=== PATIENT | female | born 1980 | race Caucasian/White ===

== ENCOUNTER → 2017-12-16 09:00 | Outpatient (CLI) | payer MEDICAID, SELFPAY ==
[2017-12-16 10:37] LABS: Absolute Lymphocyte Count 3.51 X10^3/ul (0.83-4.51); Absolute Neutrophil Count 4.1 X10^3/uL (2.0-7.7); Basophil# 0.05 X10^3/uL; Basophil% 0.6 % (0-1); Eosinophil# 0.38 X10^3/uL; Eosinophils% 4.4 % (0-5); Hematocrit 38.7 % (37-47); Hemoglobin 12.1 g/dl (12.0-15.0); Lymphocyte # 3.51 X10^3/ul (4.0); Lymphocyte % 40.8 % (19-41); Mean Corp Hgb Conc 31.3 g/gl (32-36); Mean Corpuscular Hgb 27.3 pg (27.0-32.0); Mean Corpuscular Volume 87.2 fL (81-99); Mean Platelet Vol. 10.3 fl (6.2-12.0); Monocyte# 0.54 X10^3/uL; Monocyte% 6.3 % (0-10); Neutrophil % 47.7 % (47-70); Platelet Count 295 K/mm3 (150-450); RBC Distribution Width CV 15.4 % (11.6-14.6); RBC Distribution Width SD 49.6 fl (35.1-43.9); Red Blood Count 4.44 M/mm3 (4.2-5.4); White Blood Count 8.6 K/mm3 (4.4-11.0)
[2017-12-16 10:38] LABS: POSITIVE COUNT NO; POSITIVE DIFFERENTIAL NO; POSITIVE MORPHOLOGY NO
[2017-12-16 11:02] LABS: ALB/GLOB Ratio 0.8 RATIO (0.9-2.4); AST(SGOT) 15 U/L (15-37); Alanine Aminotransfer ALT/SGPT 23 U/L (13-56); Albumin, Serum 3.1 g/dL (3.2-5.0); Alkaline Phosphatase 57 U/L (45-117); Anion Gap 7 (5-15); BUN 9 mg/dL (7-18); BUN/Creat Ratio 11.4 RATIO (10-20); Calcium,Total 8.5 mg/dL (8.5-10.1); Chloride 110 mmol/L (98-107); Creatinine, Serum 0.79 mg/dL (0.55-1.02); EST Glomerular Filtration Rate 86 mL/min (>60); Est Glom Filt Rate - Afr Amer 105 mL/min (>60); Glucose 105 mg/dL (74-106); Potassium 3.4 mmol/L (3.5-5.1); Protein, Total 7.1 g/dL (6.4-8.2); Sodium Level 141 mmol/L (136-145); Thyroid Stim Hormone (TSH) 0.94 uIU/mL (0.358-3.74)
[2017-12-16 11:43] LABS: Vitamin B12 330 pg/mL (211-911); Vitamin D,25 Hydroxy 11.6 ng/mL (29.95-100.01)
== END ==
PROVIDERS: Family Provider Family Medicine; PCP Family Medicine; Visit Provider Family Medicine
DX: I10 Essential (primary) hypertension (principal); R53.83 Other fatigue; Z72.0 Tobacco use
CPT/HCPCS: 36415; 80053; 82306; 82607; 84443; 85025

== ENCOUNTER 2018-06-22 14:33 | Emergency (ER) | payer SELFPAY ==
[2018-06-22 14:33] VITALS: BP 176/112; PULSE 83; RESP 20; TEMP 36.9; O2SAT 97; BMI 44.3
--- NOTE | 2018-06-22 15:32 | RAD_ITS ---
STUDY: X-RAY CHEST REASON FOR EXAM: Female, 37 years old. One-week history of cough. TECHNIQUE: PA and lateral views of the chest. COMPARISON: Comparison is made with prior study dated August 31, 2017. FINDINGS: The lungs are clear and expanded. There is no demonstrated pleural abnormality. Normal size heart. Normal mediastinum and kaleb. Normal visualized pulmonary arteries. Normal visualized aortic arch and descending thoracic aorta. Normal visualized thoracic spine. Normal visualized ribs, clavicles, and shoulders. There is no demonstrated abnormality of the visualized soft tissue structures of the upper abdomen. RAD/Chest PA and Lateral IMPRESSION: Normal x-ray examination of the chest. Electronically Signed: Horace Delgado MD at 15:46 EDT Tel [phone], Service support ,
[2018-06-22] MEDS: Albuterol 2.5 MG/3 ML VIAL.NEB. INHALATION (15:43)
[2018-06-22 15:44] VITALS: PULSE 66; RESP 20
--- NOTE | 2018-06-22 15:51 | ED.VISSUMM ---
- ER Visit Summary Date of Service: 06/22/18 Chief Complaint: Cough History of Present Illness: The patient is a 37 F presenting for evaluation secondary to cough. Patient reports over the course of the last week she has been dealing with an upper respiratory infection. Patient states that it is is been associated with a dry cough, but recently has become a wet cough. She reports that she has had subjective fevers rhinorrhea and some nausea with no vomiting associated with this. Patient is concerned because she has been coughing so much now that her ribs are hurting. She is a smoker, has not been able to smoke for the last 10 days secondary to this illness. Review of systems otherwise negative. Physical Examination: Vital signs are within normal limits, patient is afebrile. General: Patient is well-nourished well-developed and in no acute distress. Head: Normocephalic, atraumatic Eyes: Pupils equal round and reactive bilaterally, extra occular motion intact bialterally ENT: Moist mucous membranes Neck: Supple, no lymphadenopathy, no JVD, no meningismus CVS: Heart regular rate and rhythm, no murmurs, rubs or gallops, radial pulses 2+ bilaterally Resp: Respirations nondistressed, lung sounds show mild wheezes Abdomen: Soft, nontender, nondistended, no palpable masses, normal bowel sounds Back: Nontender Extremities: Nontender, atraumatic, active full range of motion, no peripheral edema Skin: warm, no rashes, no petechia Neuro: Alert and oriented x 4, CN 2-12 intact, no lateralizing neurological defecits Psyc: Normal affect Test Results: PA and lateral chest x-ray by my personal and radiology review is negative for cardia pulmonary process Emergency Department Course and Treatment: Patient presented for evaluation secondary to a respiratory illness. She was given a breathing treatment. X-ray shows no pneumonia. Patient will be treated for bronchitis with an inhaler and a short burst of steroids. She will follow-up with primary care as needed. Disposition: Discharge Impression: 1. Bronchitis This note was generated with [employer] dictation software. It may contain incorrect words, spelling, and punctuation that were not noted in review of the chart prior to signing ED Disposition - Plan for ED Patient: Disposition: Home or Assisted Living Chief Complaint: Cough Diagnosis: Bronchitis Instructions: ED Bronchitis Asthmatic Prescriptions: Prednisone [Deltasone] 40 mg PO DAILY #10 tab Referrals: Rigo Coats MD [Primary Care Provider] - 3-5 Days if not improving
--- NOTE | 2018-06-22 15:55 | ED.DCSUM_ITS ---
- ER Visit Summary Date of Service: 06/22/18 Chief Complaint: Cough History of Present Illness: The patient is a 37 F presenting for evaluation secondary to cough. Patient reports over the course of the last week she has been dealing with an upper respiratory infection. Patient states that it is is been associated with a dry cough, but recently has become a wet cough. She reports that she has had subjective fevers rhinorrhea and some nausea with no vomiting associated with this. Patient is concerned because she has been coughing so much now that her ribs are hurting. She is a smoker, has not been able to smoke for the last 10 days secondary to this illness. Review of systems otherwise negative. Physical Examination: Vital signs are within normal limits, patient is afebrile. General: Patient is well-nourished well-developed and in no acute distress. Head: Normocephalic, atraumatic Eyes: Pupils equal round and reactive bilaterally, extra occular motion intact bialterally ENT: Moist mucous membranes Neck: Supple, no lymphadenopathy, no JVD, no meningismus CVS: Heart regular rate and rhythm, no murmurs, rubs or gallops, radial pulses 2 + bilaterally Resp: Respirations nondistressed, lung sounds show mild wheezes Abdomen: Soft, nontender, nondistended, no palpable masses, normal bowel sounds Back: Nontender Extremities: Nontender, atraumatic, active full range of motion, no peripheral edema Skin: warm, no rashes, no petechia Neuro: Alert and oriented x 4, CN 2-12 intact, no lateralizing neurological defecits Psyc: Normal affect Test Results: PA and lateral chest x-ray by my personal and radiology review is negative for cardia pulmonary process Emergency Department Course and Treatment: Patient presented for evaluation secondary to a respiratory illness. She was given a breathing treatment. X- ray shows no pneumonia. Patient will be treated for bronchitis with an inhaler and a short burst of steroids. She will follow-up with primary care as needed. Disposition: Discharge Impression: 1. Bronchitis This note was generated with [employer] dictation software. It may contain incorrect words, spelling, and punctuation that were not noted in review of the chart prior to signing ED Disposition - Plan for ED Patient: Disposition: Home or Assisted Living Chief Complaint: Cough Diagnosis: Bronchitis Instructions: ED Bronchitis Asthmatic Prescriptions: Prednisone [Deltasone] 40 mg PO DAILY #10 tab Referrals: Rigo Coats MD [Primary Care Provider] - 3-5 Days if not improving
[2018-06-22] MEDS: predniSONE 20 MG Tablet 60 MG PO (16:05)
[2018-06-22 16:07] VITALS: BP 175/101; PULSE 73; RESP 18; O2SAT 94
== END 2018-06-22 16:08 | disposition home or self-care (01) ==
LOC: ED 16:05
PROVIDERS: Emergency Provider Emergency Medicine; Family Provider Family Medicine; PCP Family Medicine
DX: J40 Bronchitis, not specified as acute or chronic (principal); E66.9 Obesity, unspecified; Z68.41 Body mass index [BMI] 40.0-44.9, adult; Z72.0 Tobacco use
CPT/HCPCS: 71046; 94640; 99283

== ENCOUNTER 2018-10-31 14:45 | Emergency (ER) | payer BC, SELFPAY ==
[2018-10-31 14:46] VITALS: BP 181/100; PULSE 103; RESP 16; TEMP 36.5; O2SAT 100; BMI 47.2
--- NOTE | 2018-10-31 15:18 | EKG12_ITS ---
Test Reason : PALPS Blood Pressure : / mmHG Vent. Rate : 083 BPM Atrial Rate : 083 BPM P-R Int : 130 ms QRS Dur : 090 ms QT Int : 374 ms P-R-T Axes : 044 024 038 degrees QTc Int : 439 ms Normal sinus rhythm Normal ECG Confirmed by VIV ARREDONDO, LITA ([id number]), editorial writer MARLENY VEGA ([id number]) on 11/03/2018 3:25:20 PM Referred By: STACI Confirmed By:LITA NAM MD
--- NOTE | 2018-10-31 15:30 | RAD_ITS ---
STUDY: X-RAY CHEST REASON FOR EXAM: Female, 38 years old. Palpitations. TECHNIQUE: PA and lateral views of the chest. COMPARISON: Comparison is made with prior study June 22, 2018. FINDINGS: The lungs are clear and expanded. There is no demonstrated pleural abnormality. Normal size heart. Normal mediastinum and kaleb. Normal visualized pulmonary arteries. Normal visualized aortic arch and descending thoracic aorta. Normal visualized thoracic spine. Normal visualized ribs, clavicles, and shoulders. There is no demonstrated abnormality of the visualized soft tissue structures of the upper abdomen. RAD/Chest PA and Lateral IMPRESSION: Normal x-ray examination of the chest. Electronically Signed: Horace Delgado MD at 15:44 EST , Service support ,
[2018-10-31 15:44] LABS: Absolute Lymphocyte Count 2.37 X10^3/ul (0.83-4.51); Absolute Neutrophil Count 6.5 X10^3/uL (2.0-7.7); Basophil# 0.06 X10^3/uL; Basophil% 0.6 % (0-1); Eosinophil# 0.48 X10^3/uL; Eosinophils% 4.7 % (0-5); Hematocrit 42.3 % (37-47); Hemoglobin 13.8 g/dl (12.0-15.0); Lymphocyte # 2.37 X10^3/ul (4.0); Lymphocyte % 23.2 % (19-41); Mean Corp Hgb Conc 32.6 g/gl (32-36); Mean Corpuscular Hgb 27.9 pg (27.0-32.0); Mean Corpuscular Volume 85.5 fL (81-99); Mean Platelet Vol. 10.2 fl (6.2-12.0); Monocyte# 0.79 X10^3/uL; Monocyte% 7.7 % (0-10); Neutrophil # 6.46 X10^3/uL (2.7-7.7); Neutrophil % 63.4 % (47-70); Platelet Count 274 K/mm3 (150-450); RBC Distribution Width CV 15.3 % (11.6-14.6); RBC Distribution Width SD 47.6 fl (35.1-43.9); Red Blood Count 4.95 M/mm3 (4.2-5.4); White Blood Count 10.2 K/mm3 (4.4-11.0)
[2018-10-31 15:45] LABS: POSITIVE COUNT NO; POSITIVE DIFFERENTIAL NO; POSITIVE MORPHOLOGY NO
[2018-10-31 16:06] LABS: Anion Gap 6 (5-15); BUN 9 mg/dL (7-18); BUN/Creat Ratio 11.5 RATIO (10-20); Calcium,Total 8.6 mg/dL (8.5-10.1); Chloride 107 mmol/L (98-107); Creatinine, Serum 0.78 mg/dL (0.55-1.02); EST Glomerular Filtration Rate 87 mL/min (>60); Est Glom Filt Rate - Afr Amer 105 mL/min (>60); Glucose 135 mg/dL (74-106); Potassium 3.3 mmol/L (3.5-5.1); Sodium Level 139 mmol/L (136-145)
--- NOTE | 2018-10-31 16:41 | ED.DCSUM_ITS ---
- ER Visit Summary Date of Service: 10/31/18 Chief Complaint: Palpitations History of Present Illness: The patient is a 38 F who presents to the emergency department palpitations. Patient states that around the time that she gets her period, she will have intermittent heart racing. She states that she woke from sleep today. She states she felt like it was racing. She did take her pulse and was only in the 90s. She has had this before. She states that during her , she did have symptomatic tachycardia. She was on Lopressor but when she delivered, the symptoms resolved. She does state that she is very sensitive to hormonal imbalance. She is been following with her [employer] because she does have a history of PCO S. She was just started on new medications Metformin, spironolactone, and Imitrex but has not had the prescriptions filled. She denies any chest pain. She denies any dyspnea. She has no history of pulmonary embolus. She is no history of CHF. Physical Examination: Vital signs reviewed General: Well-nourished, well-developed Head: Normocephalic, atraumatic Eyes: Pupils equal and reactive, extraocular muscles intact Neck, supple, no lymphadenopathy Heart: Regular rate and rhythm Respiratory: No distress, clear bilaterally Right breast: Patient has a small spontaneously draining abscess with minimal surrounding cellulitis Abdomen: Soft, nontender, nondistended, no peritoneal signs Back: Nontender Extremities: Nontender, no edema, no cords Skin: Normal color no rash Neuro: Alert and oriented, no focal or lateralizing deficits Test Results: [] Emergency Department Course and Treatment: EKG was obtained in triage. It shows sinus rhythm without acute ischemic change. She was kept on a monitor to had no dysrhythmia. Her labs are unremarkable. Her chest x-ray shows no evidence of volume overload. I do not feel this patient has a pulmonary embolus. She has had no shortness of breath. She has no hypoxia. She does have a small spontaneously draining abscess. She is also mildly hypokalemic. I do feel that this is symptomatic palpitations likely secondary to her PCO S. I do not see a clear indication for hospitalization or medical treatment. The patient will be started on doxycycline for her draining abscess. She will have her potassium replaced. I do feel that she is safe for outpatient therapy. Treatment Plan: [] Disposition: Discharge Impression: 1. Symptomatic palpitations 2. Right breast abscess This note was generated with [employer] dictation software. It may contain incorrect words, spelling, and punctuation that were not noted in review of the chart prior to signing ED Disposition - Plan for ED Patient: Chief Complaint: Palpitations Instructions: ED Palpitations Prescriptions: Potassium Chloride [K-Dur] 20 meq PO DAILY #10 tab Doxycycline 100 mg PO BID #20 cap Referrals: Rigo Coats MD [Primary Care Provider] -
[2018-10-31 16:42] VITALS: O2SAT 99
[2018-10-31 16:44] VITALS: BP 148/95; PULSE 74; RESP 17; O2SAT 99
[2018-10-31 16:46] VITALS: BP 138/96; PULSE 72; RESP 21; O2SAT 99
[2018-10-31] MEDS: Doxycycline 100 MG CAPSULE PO (16:50)
== END 2018-10-31 17:01 | disposition home or self-care (01) ==
LOC: ED 16:42
PROVIDERS: Emergency Provider Emergency Medicine; Family Provider Family Medicine; PCP Family Medicine
DX: R00.2 Palpitations (principal); N61.1 Abscess of the breast and nipple; E28.2 Polycystic ovarian syndrome
CPT/HCPCS: 71046; 80048; 84484; 85025; 93005; 99285

== ENCOUNTER 2018-11-02 05:54 | Emergency (ER) | payer BC, SELFPAY ==
[2018-11-02 05:55] VITALS: BP 177/105; PULSE 75; RESP 16; TEMP 37.1; O2SAT 98; BMI 48.6
--- NOTE | 2018-11-02 06:59 | EKG12_ITS ---
Test Reason : ABNL PAIN Blood Pressure : / mmHG Vent. Rate : 060 BPM Atrial Rate : 060 BPM P-R Int : 134 ms QRS Dur : 086 ms QT Int : 394 ms P-R-T Axes : 024 004 017 degrees QTc Int : 394 ms Normal sinus rhythm Normal ECG Confirmed by VIV ARREDONDO, LITA ([id number]), editor managing newspaper MARLENY VEGA ([id number]) on 11/03/2018 3:15:17 PM Referred By: JORI Confirmed By:LITA NAM MD
[2018-11-02 07:09] LABS: Absolute Lymphocyte Count 3.22 X10^3/ul (0.83-4.51); Absolute Neutrophil Count 5.5 X10^3/uL (2.0-7.7); Basophil# 0.05 X10^3/uL; Basophil% 0.5 % (0-1); Eosinophil# 0.49 X10^3/uL; Eosinophils% 4.9 % (0-5); Hematocrit 40.8 % (37-47); Hemoglobin 13.2 g/dl (12.0-15.0); Lymphocyte # 3.22 X10^3/ul (4.0); Lymphocyte % 32.3 % (19-41); Mean Corp Hgb Conc 32.4 g/gl (32-36); Mean Corpuscular Hgb 27.7 pg (27.0-32.0); Mean Corpuscular Volume 85.5 fL (81-99); Mean Platelet Vol. 10.6 fl (6.2-12.0); Monocyte# 0.74 X10^3/uL; Monocyte% 7.4 % (0-10); Neutrophil # 5.47 X10^3/uL (2.7-7.7); Neutrophil % 54.8 % (47-70); Platelet Count 268 K/mm3 (150-450); RBC Distribution Width CV 15.1 % (11.6-14.6); Red Blood Count 4.77 M/mm3 (4.2-5.4)
[2018-11-02 07:16] LABS: POSITIVE COUNT NO; POSITIVE DIFFERENTIAL NO; POSITIVE MORPHOLOGY NO
[2018-11-02] MEDS: Ondansetron 4 MG/2 ML Vial IV (07:23)
[2018-11-02] MEDS: Famotidine 20mg IV Push Syringe Q12 300 MG IV (07:23)
[2018-11-02] MEDS: 0.9% Normal Saline 1,000 ML 1000 ML IV (07:23)
[2018-11-02 07:25] LABS: Mucous, Urine 0 SEEN /hpf (<or=2+); White Blood Cells 0 SEEN /hpf (0-5)
[2018-11-02 07:25] LABS: ALB/GLOB Ratio 0.7 RATIO (0.9-2.4); AST(SGOT) 12 U/L (15-37); Alanine Aminotransfer ALT/SGPT 19 U/L (13-56); Albumin, Serum 3.2 g/dL (3.2-5.0); Alkaline Phosphatase 64 U/L (45-117); Anion Gap 5 (5-15); BUN 11 mg/dL (7-18); BUN/Creat Ratio 15.2 RATIO (10-20); Calcium,Total 8.8 mg/dL (8.5-10.1); Chloride 110 mmol/L (98-107); Creatinine, Serum 0.72 mg/dL (0.55-1.02); EST Glomerular Filtration Rate 95 mL/min (>60); Est Glom Filt Rate - Afr Amer 115 mL/min (>60); Estimated Creatinine Clearance 105.82 ml/min; Globulin 4.4 g/dL (2.2-4.2); Glucose 99 mg/dL (74-106); Lipase 103 U/L (73-393); Protein, Total 7.6 g/dL (6.4-8.2); Sodium Level 138 mmol/L (136-145)
[2018-11-02 07:27] LABS: Pregnancy, Serum, hCG Quali. NEGATIVE Negative (0-9 Nonpreg)
[2018-11-02 07:31] LABS: Color, Urine Yellow (Yellow); Glucose, Dipstick Normal (Normal); Ketone-Dipstick Negative (Negative); Leukocyte Esterase-Dipstick Negative /ul (Negative); Nitrite-Dipstick Negative (Negative); Occult Blood-Urine 50 /ul (Negative); Protein-Dipstick Negative (Negative); Urine Bilirubin Dipstick Negative (Negative); Urine Clarity Sl. Cloudy (Clear); Urine Urobilinogen Normal (Normal)
[2018-11-02 07:38] LABS: Bacteria 1+ /hpf (None Seen); Red Blood Cells-Urine 0-5 SEEN /hpf (0-5); Squamous Epithelial Cells - UA 0-5 SEEN /hpf (5-10)
--- NOTE | 2018-11-02 08:29 | ED.VISSUMM ---
- ER Visit Summary Date of Service: 11/02/18 Chief Complaint: Abdominal pain History of Present Illness: The patient is a 38 F with epigastric abdominal pain that started yesterday evening at 10 PM. It started when the patient went to bed. She has pain that she describes as a burning. It does not radiate. She tried taking Dang-[place] but it did not help. She has nausea but no other associated symptoms. She had similar symptoms in the past with acid reflux, but never this severe. She has a history of appendectomy and PCOS. Physical Examination: Afebrile and vital signs unremarkable except for a blood pressure of 177/105. Patient appears uncomfortable but is not toxic or in distress. Skin is normal in color without pallor, jaundice, or diaphoresis. Heart regular rate and rhythm. Lungs clear. Abdomen soft but tender in the epigastric region. No guarding or rebound. No pain over the right or left upper quadrant. No CVA tenderness. Test Results: EKG showed sinus rhythm at a rate of 60. No sign of acute ischemia or infarction pattern. CBC normal. CMP unremarkable. Lipase normal. Urinalysis normal. Troponin normal. HCG negative. Emergency Department Course and Treatment: Patient received fluids, morphine, Zofran, and Pepcid. On reevaluation, the nausea has improved but she has continued pain. Based on her exam findings and labs, I do not believe she has cholecystitis, pancreatitis, hepatitis. Nothing to suggest bowel obstruction, colitis, diverticulitis. I suspect she has gastritis or acid reflux. Patient will be treated with a course of Pepcid, Zofran, and MiraLAX. She will follow-up with her primary care doctor for recheck. Return right away for any new or worsening issues. Treatment Plan: As above Disposition: Discharge Impression: 1. Epigastric abdominal pain This note was generated with [employer] dictation software. It may contain incorrect words, spelling, and punctuation that were not noted in review of the chart prior to signing ED Disposition - Plan for ED Patient: Referrals: Rigo Coats MD [Primary Care Provider] -
--- NOTE | 2018-11-02 08:32 | ED.DCSUM_ITS ---
- ER Visit Summary Date of Service: 11/02/18 Chief Complaint: Abdominal pain History of Present Illness: The patient is a 38 F with epigastric abdominal pain that started yesterday evening at 10 PM. It started when the patient went to bed. She has pain that she describes as a burning. It does not radiate. She tried taking Dang-[place] but it did not help. She has nausea but no other associated symptoms. She had similar symptoms in the past with acid reflux, but never this severe. She has a history of appendectomy and PCOS. Physical Examination: Afebrile and vital signs unremarkable except for a blood pressure of 177/105. Patient appears uncomfortable but is not toxic or in distress. Skin is normal in color without pallor, jaundice, or diaphoresis. Heart regular rate and rhythm. Lungs clear. Abdomen soft but tender in the epigastric region. No guarding or rebound. No pain over the right or left upper quadrant. No CVA tenderness. Test Results: EKG showed sinus rhythm at a rate of 60. No sign of acute ischemia or infarction pattern. CBC normal. CMP unremarkable. Lipase normal. Urinalysis normal. Troponin normal. HCG negative. Emergency Department Course and Treatment: Patient received fluids, morphine, Zofran, and Pepcid. On reevaluation, the nausea has improved but she has continued pain. Based on her exam findings and labs, I do not believe she has cholecystitis, pancreatitis , hepatitis. Nothing to suggest bowel obstruction, colitis, diverticulitis. I suspect she has gastritis or acid reflux. Patient will be treated with a course of Pepcid, Zofran, and MiraLAX. She will follow-up with her primary care doctor for recheck. Return right away for any new or worsening issues. Treatment Plan: As above Disposition: Discharge Impression: 1. Epigastric abdominal pain This note was generated with [employer] dictation software. It may contain incorrect words, spelling, and punctuation that were not noted in review of the chart prior to signing ED Disposition - Plan for ED Patient: Referrals: Rigo Coats MD [Primary Care Provider] -
--- NOTE | 2018-11-02 08:32 | ED.DEP ---
ED Disposition - Plan for ED Patient: Instructions: ED Abdominal Pain Unkn Cause Prescriptions: Ondansetron [Zofran Odt] 4 mg PO Q8H PRN PRN #10 tab PRN Reason: Nausea Polyethylene Glycol 3350 [Miralax] 17 gm PO DAILY #30 packet Famotidine [Pepcid] 20 mg PO BID #28 tab Referrals: Rigo Coats MD [Primary Care Provider] -
[2018-11-02 08:50] VITALS: BP 151/84; PULSE 16; PULSE 58; RESP 16; O2SAT 99
== END 2018-11-02 08:51 | disposition home or self-care (01) ==
LOC: ED 07:01
PROVIDERS: Emergency Provider Emergency Medicine; Family Provider Family Medicine; PCP Family Medicine
DX: R10.13 Epigastric pain (principal); R11.0 Nausea; I10 Essential (primary) hypertension; Z72.0 Tobacco use
CPT/HCPCS: 80053; 81001; 83690; 84484; 84703; 85025; 93005; 96361; 96374; 96375; 99284; J7030; A4216; J2405; J3490

== ENCOUNTER → 2018-11-03 09:46 | Outpatient (CLI) | payer BC, SELFPAY ==
[2018-11-02 05:55] VITALS: BMI 48.6
[2018-11-03 11:58] LABS: Absolute Lymphocyte Count 2.85 X10^3/ul (0.83-4.51); Absolute Neutrophil Count 4.9 X10^3/uL (2.0-7.7); Basophil# 0.06 X10^3/uL; Basophil% 0.7 % (0-1); Eosinophil# 0.42 X10^3/uL; Eosinophils% 4.8 % (0-5); Hematocrit 39.8 % (37-47); Hemoglobin 12.5 g/dl (12.0-15.0); Lymphocyte # 2.85 X10^3/ul (4.0); Lymphocyte % 32.2 % (19-41); Mean Corp Hgb Conc 31.4 g/gl (32-36); Mean Corpuscular Hgb 27.2 pg (27.0-32.0); Mean Corpuscular Volume 86.5 fL (81-99); Mean Platelet Vol. 10.3 fl (6.2-12.0); Monocyte# 0.56 X10^3/uL; Monocyte% 6.3 % (0-10); Neutrophil # 4.94 X10^3/uL (2.7-7.7); Neutrophil % 55.9 % (47-70); Platelet Count 258 K/mm3 (150-450); RBC Distribution Width CV 15.1 % (11.6-14.6); RBC Distribution Width SD 47.9 fl (35.1-43.9); White Blood Count 8.8 K/mm3 (4.4-11.0)
[2018-11-03 12:01] LABS: POSITIVE COUNT NO; POSITIVE DIFFERENTIAL NO; POSITIVE MORPHOLOGY NO
[2018-11-03 12:43] LABS: Vitamin B12 582 pg/mL (211-911); Vitamin D,25 Hydroxy 13.9 ng/mL (29.95-100.01)
[2018-11-03 12:47] LABS: ALB/GLOB Ratio 0.8 RATIO (0.9-2.4); AST(SGOT) 15 U/L (15-37); Alanine Aminotransfer ALT/SGPT 20 U/L (13-56); Albumin, Serum 3.3 g/dL (3.2-5.0); Alkaline Phosphatase 60 U/L (45-117); Anion Gap 9 (5-15); BUN 8 mg/dL (7-18); BUN/Creat Ratio 12.1 RATIO (10-20); Calcium,Total 8.4 mg/dL (8.5-10.1); Chloride 110 mmol/L (98-107); Creatinine, Serum 0.66 mg/dL (0.55-1.02); EST Glomerular Filtration Rate 105 mL/min (>60); Est Glom Filt Rate - Afr Amer 128 mL/min (>60); Globulin 4.2 g/dL (2.2-4.2); Glucose 91 mg/dL (74-106); Potassium 3.7 mmol/L (3.5-5.1); Protein, Total 7.5 g/dL (6.4-8.2); Sodium Level 140 mmol/L (136-145); Thyroid Stim Hormone (TSH) 1.31 uIU/mL (0.358-3.74)
== END ==
PROVIDERS: Family Provider Family Medicine; PCP Family Medicine; Visit Provider Family Medicine
DX: R53.83 Other fatigue (principal); I10 Essential (primary) hypertension; Z72.0 Tobacco use
CPT/HCPCS: 36415; 80053; 82306; 82607; 84443; 85025

== ENCOUNTER 2018-11-04 00:47 | Emergency (ER) | payer BC, SELFPAY ==
[2018-11-04 00:48] VITALS: BP 197/125; PULSE 87; RESP 18; TEMP 36.4; O2SAT 100; BMI 49.6
--- NOTE | 2018-11-04 01:01 | CT_ITS ---
STUDY: CT ABDOMEN AND PELVIS WITH CONTRAST REASON FOR EXAM: Female, 38 years old. Abdominal pain RADIATION DOSAGE (If Supplied By Facility): CTDIvol = ( 24.33 ) mGy, DLP = ( 2017.13 ) mGycm TECHNIQUE: Transaxial images were obtained from the dome of the diaphragm to the symphysis pubis with oral contrast. 100ML ml of Isovue 300 contrast was administered. Sagittal and coronal images were reconstructed. Individualized dose optimization techniques were used for this CT. COMPARISON: None. FINDINGS: The visualized lung bases are unremarkable. The visualized portions of the heart are within normal limits. Normal liver. There are multiple gallstones. Normal spleen. Normal pancreas. Normal bilateral adrenal glands. Normal right kidney. Normal left kidney. Normal visualized stomach. Normal small intestine. Normal colon. There is non-visualization of the appendix. Normal abdominal aorta. Normal inferior vena cava. Nonspecific subcentimeter short axis mesenteric and retroperitoneal lymph nodes. There is some mesenteric fatty stranding present. Normal urinary bladder. Normal abdominal wall. There are diffuse degenerative changes of the visualized lumbar spine. Degenerative changes of the bilateral hips and sacroiliac joints. CT/Abdomen/Pelvis W IV Cont ONLY IMPRESSION: Multiple cholelithiasis. Gallbladder ultrasound could be performed to further evaluate. There is nonspecific mesenteric root fatty stranding with subcentimeter short axis lymph nodes. This could be infectious inflammatory etiology. Possible mesenteric adenitis. Nonspecific finding. There is no CT evidence for acute diverticulitis. Other findings as discussed above. Electronically Signed: Ken Moreno, at 2:32 EST Tel , Service support ,
--- NOTE | 2018-11-04 01:03 | EKG12_ITS ---
Test Reason : ABD PAIN Blood Pressure : / mmHG Vent. Rate : 079 BPM Atrial Rate : 079 BPM P-R Int : 124 ms QRS Dur : 086 ms QT Int : 380 ms P-R-T Axes : 042 008 022 degrees QTc Int : 435 ms Normal sinus rhythm Normal ECG Confirmed by VIV ARREDONDO, LITA ([id number]), development editor MARLENY VEGA ([id number]) on 11/08/2018 1:27:03 PM Referred By: HANNAH Confirmed By:LITA NAM MD
[2018-11-04] MEDS: Mag Hydrox/Al Hydrox/Simeth 30 ML UDC PO (01:17)
[2018-11-04 01:45] LABS: Absolute Lymphocyte Count 3.94 X10^3/ul (0.83-4.51); Absolute Neutrophil Count 5.3 X10^3/uL (2.0-7.7); Basophil# 0.06 X10^3/uL; Basophil% 0.6 % (0-1); Eosinophils% 5.5 % (0-5); Hematocrit 40.5 % (37-47); Hemoglobin 12.9 g/dl (12.0-15.0); Lymphocyte # 3.94 X10^3/ul (4.0); Lymphocyte % 36.4 % (19-41); Mean Corp Hgb Conc 31.9 g/gl (32-36); Mean Corpuscular Hgb 27.7 pg (27.0-32.0); Mean Corpuscular Volume 87.1 fL (81-99); Mean Platelet Vol. 10.2 fl (6.2-12.0); Monocyte# 0.85 X10^3/uL; Monocyte% 7.9 % (0-10); Neutrophil # 5.34 X10^3/uL (2.7-7.7); Neutrophil % 49.3 % (47-70); Platelet Count 266 K/mm3 (150-450); RBC Distribution Width CV 15.1 % (11.6-14.6); RBC Distribution Width SD 48.5 fl (35.1-43.9); Red Blood Count 4.65 M/mm3 (4.2-5.4); White Blood Count 10.8 K/mm3 (4.4-11.0)
[2018-11-04 01:48] LABS: POSITIVE COUNT NO; POSITIVE DIFFERENTIAL NO; POSITIVE MORPHOLOGY NO
[2018-11-04 01:55] LABS: ALB/GLOB Ratio 0.8 RATIO (0.9-2.4); AST(SGOT) 13 U/L (15-37); Alanine Aminotransfer ALT/SGPT 20 U/L (13-56); Albumin, Serum 3.3 g/dL (3.2-5.0); Alkaline Phosphatase 63 U/L (45-117); Anion Gap 7 (5-15); BUN 10 mg/dL (7-18); BUN/Creat Ratio 12.6 RATIO (10-20); Calcium,Total 8.2 mg/dL (8.5-10.1); Chloride 108 mmol/L (98-107); EST Glomerular Filtration Rate 85 mL/min (>60); Est Glom Filt Rate - Afr Amer 103 mL/min (>60); Estimated Creatinine Clearance 95.24 ml/min; Globulin 4.3 g/dL (2.2-4.2); Glucose 111 mg/dL (74-106); Lipase 119 U/L (73-393); Potassium 3.6 mmol/L (3.5-5.1); Protein, Total 7.6 g/dL (6.4-8.2); Sodium Level 140 mmol/L (136-145)
--- NOTE | 2018-11-04 02:02 | ED.VISSUMM ---
- ER Visit Summary Date of Service: 11/04/18 Chief Complaint: Abdominal pain History of Present Illness: The patient is a 38 F who was seen yesterday for a burning epigastric pain. She was diagnosed with GERD discharged home on Pepcid and Phenergan. She saw her primary care physician today was given omeprazole and told not to take ibuprofen. She states that she called them back and states she was going to have to take some ibuprofen because of the pain. She states the pain does not radiate to the back or shoulder blades. It is epigastric and not right upper quadrant. She has no discomfort with eating. She is a smoker. She denies alcohol use. No vomiting or diarrhea. Tonight the pain was unbearable so she came to the department. Physical Examination: Afebrile vital signs are stable Gen: Well-nourished well-developed Head: Normocephalic atraumatic Eyes: Perrl EOMI ENT: TMs clear no rhinorrhea moist mucous membranes Neck: Supple no lymphadenopathy no JVD nontender CVS: Regular rate rhythm no murmurs normal S1-S2 Respiratory: No distress clear to auscultation bilaterally chest nontender Abdomen: Soft nontender nondistended normal bowel sounds no masses Back: Nontender Extremity: Nontender no edema Skin: Normal color no rash Neuro: alert orientated ?3 CN II-XII intact normal strength sensation reflexes gait cerebellar Psych: Normal affect normal mood Test Results: White count 10.8. Normal liver enzymes and lipase. Chemistry showed a glucose of 111. EKG showed a sinus rhythm at a rate of 79. CT the abdomen pelvis demonstrated large cholelithiasis. Emergency Department Course and Treatment: Patient received a GI cocktail and had full resolution of her symptoms. I would suggest that in addition to her omeprazole we do some Carafate and as needed viscous lidocaine with Maalox. As far as the cholelithiasis I am going to have her referred to general surgeon. I do believe her symptoms today are more related to gastritis/GERD as compared to the cholelithiasis. Impression: 1. Gastritis 2. Cholelithiasis This note was generated with [employer] dictation software. It may contain incorrect words, spelling, and punctuation that were not noted in review of the chart prior to signing ED Disposition - Plan for ED Patient: Disposition: Home or Assisted Living Instructions: What are Gallstones?, ED PUD Vs Gastritis Prescriptions: Lidocaine 2% Viscous [Xylocaine Viscous] 15 ml PO TID PRN #300 ml PRN Reason: Pain Sucralfate [Carafate] 1 gm PO 4X/DAY #56 tab Referrals: Sarah Carrizales MD [STAFF PHYSICIAN] - (call on Tuesday to arrange follow up)
--- NOTE | 2018-11-04 02:06 | ED.DCSUM_ITS ---
- ER Visit Summary Date of Service: 11/04/18 Chief Complaint: Abdominal pain History of Present Illness: The patient is a 38 F who was seen yesterday for a burning epigastric pain. She was diagnosed with GERD discharged home on Pepcid and Phenergan. She saw her primary care physician today was given omeprazole and told not to take ibuprofen. She states that she called them back and states she was going to have to take some ibuprofen because of the pain. She states the pain does not radiate to the back or shoulder blades. It is epigastric and not right upper quadrant. She has no discomfort with eating. She is a smoker. She denies alcohol use. No vomiting or diarrhea. Tonight the pain was un bearable so she came to the department. Physical Examination: Afebrile vital signs are stable Gen: Well-nourished well-developed Head: Normocephalic atraumatic Eyes: Perrl EOMI ENT: TMs clear no rhinorrhea moist mucous membranes Neck: Supple no lymphadenopathy no JVD nontender CVS: Regular rate rhythm no murmurs normal S1-S2 Respiratory: No distress clear to auscultation bilaterally chest nontender Abdomen: Soft nontender nondistended normal bowel sounds no masses Back: Nontender Extremity: Nontender no edema Skin: Normal color no rash Neuro: alert orientated ?3 CN II-XII intact normal strength sensation reflexes gait cerebellar Psych: Normal affect normal mood Test Results: White count 10.8. Normal liver enzymes and lipase. Chemistry showed a glucose of 111. EKG showed a sinus rhythm at a rate of 79. CT the abdomen pelvis demonstrated large cholelithiasis. Emergency Department Course and Treatment: Patient received a GI cocktail and had full resolution of her symptoms. I would suggest that in addition to her omeprazole we do some Carafate and as needed viscous lidocaine with Maalox. As far as the cholelithiasis I am going to have her referred to general surgeon. I do believe her symptoms today are more related to gastritis/GERD as compared to the cholelithiasis. Impression: 1. Gastritis 2. Cholelithiasis This note was generated with [employer] dictation software. It may contain incorrect words, spelling, and punctuation that were not noted in review of the chart prior to signing ED Disposition - Plan for ED Patient: Disposition: Home or Assisted Living Instructions: What are Gallstones?, ED PUD Vs Gastritis Prescriptions: Lidocaine 2% Viscous [Xylocaine Viscous] 15 ml PO TID PRN #300 ml PRN Reason: Pain Sucralfate [Carafate] 1 gm PO 4X/DAY #56 tab Referrals: Sarah Carrizales MD [STAFF PHYSICIAN] - (call on Tuesday to arrange follow up)
[2018-11-04 02:46] VITALS: BP 186/114; PULSE 88; RESP 16; O2SAT 98
== END 2018-11-04 02:53 | disposition home or self-care (01) ==
PROVIDERS: Emergency Provider Emergency Medicine; Family Provider Family Medicine; PCP Family Medicine
DX: K29.70 Gastritis, unspecified, without bleeding (principal); K80.20 Calculus of gallbladder without cholecystitis without obstruction; F17.200 Nicotine dependence, unspecified, uncomplicated; I10 Essential (primary) hypertension; E66.9 Obesity, unspecified; Z68.42 Body mass index [BMI] 45.0-49.9, adult
CPT/HCPCS: 74177; 80053; 83690; 85025; 93005; 99284; Q9967; A4216

== ENCOUNTER 2018-11-07 06:24 | Emergency (ER) | payer BC, SELFPAY ==
[2018-11-06 13:48] VITALS: BMI 49.6
[2018-11-07 06:25] VITALS: BP 230/125; PULSE 77; RESP 19; TEMP 37.3; O2SAT 99; BMI 48.6
--- NOTE | 2018-11-07 06:57 | US_ITS ---
STUDY: ABDOMINAL ULTRASOUND - RIGHT UPPER QUADRANT REASON FOR VISIT: Female, 38 years old. Right upper quadrant pain for one week. TECHNIQUE: Ultrasound evaluation of the right upper quadrant was performed with real-time and static ryan-scale imaging. TECHNICAL QUALITY: Limited. Examination limited by bowel gas. COMPARISON: None. FINDINGS: Liver: The liver measures 19 cm. There is increased echogenicity consistent with fatty infiltration. The bile ducts are within normal limits. There is hepatic color flow. The direction of portal flow is hepatopetal. There is no demonstrated mass lesion. Gallbladder: Normal distended gallbladder. The gallbladder wall measures 3.1 mm. There is a positive sonographic King's sign. There is no pericholecystic fluid. There are multiple echogenic structures within the gallbladder, consistent with multiple gallstones. Common Bile Duct (C.B.D.): The common bile duct measures 5.5 mm. Pancreas: There is suboptimal visualization of the pancreas due to overlying bowel gas particularly in the region of the tail. Right Kidney: Normal size of the right kidney. The right kidney measures 10.6 x 5.1 x 5.6 cm. Normal renal cortex. The right cortex measures 1.5 cm. There is no demonstrated renal mass or cyst. There is no right hydronephrosis. US/Gallbladder IMPRESSION: 1. Multiple gallstones with positive King's sign. Nuclear medicine biliary scan might be of further value. 2. Mild hepatomegaly. 3. Fatty infiltration of the liver. Electronically Signed: Josh Alegria MD at 8:21 EST Tel , Service support ,
--- NOTE | 2018-11-07 06:59 | ED.DCSUM_ITS ---
- ER Visit Summary Date of Service: 11/07/18 Chief Complaint: Abdominal pain History of Present Illness: The patient is a 38 F presents to the emergency department with abdominal pain. The patient's been having symptoms intermittently for the past week. She is been seen here twice. 2 days ago, she had a CT scan which demonstrated multiple gallstones and questionable mesenteric adenitis. She was given outpatient surgical referral. She did see surgery in the office yesterday. She is scheduled for endoscopy tomorrow. She states that the burning has improved, but now she is begun to have pain. She describes it mostly in the midepigastric area into the right upper quadrant. She had mild nausea but denies any vomiting. She does not think she had fever chills. Patient has not been compliant with her Carafate or omeprazole therapy. Physical Examination: Vital signs reviewed General: Well-nourished, well-developed Head: Normocephalic, atraumatic Eyes: Pupils equal and reactive, extraocular muscles intact Neck, supple, no lymphadenopathy Heart: Regular rate and rhythm Respiratory: No distress, clear bilaterally Abdomen: Soft, tender in the midepigastric area in the right upper quadrant without definitive King sign, nondistended, no peritoneal signs Back: Nontender Extremities: Nontender, no edema, no cords Skin: Normal color no rash Neuro: Alert and oriented, no focal or lateralizing deficits Test Results: [] Emergency Department Course and Treatment: The patient presents with abdominal pain. She states that it is different than the burning that she is been having. Her CT did demonstrate mesenteric adenitis 2 days ago. I do feel this may be contributing. She did have some pain in the midepigastric area into the right upper quadrant, but no definitive King sign. Screening labs are obtained were unremarkable. LFTs were normal. I did obtain a right upper quadrant ultrasound which showed gallbladder stones, but no wall thickening or pericholecystic fluid. The patient has had no pain with eating. She still tolerating a normal diet. I do feel that her pain is likely twofold with gastritis and mesenteric adenitis. I did discuss the patient with Dr. Bautista. The patient is actually scheduled for EGD tomorrow. I am going to treat the patient with analgesics. She was counseled on foods to avoid. The patient will be discharged and will follow-up for EGD tomorrow. She is comfortable with this plan of care and her repeat exam shows a soft and nontender abdomen with no pain. Treatment Plan: [] Disposition: Discharge Impression: 1. Epigastric pain 2. Mesenteric adenitis This note was generated with [employer] dictation software. It may contain incorrect words, spelling, and punctuation that were not noted in review of the chart prior to signing ED Disposition - Plan for ED Patient: Instructions: ED PUD Vs Gastritis Prescriptions: Oxycodone HCl/Acetaminophen [Percocet 5/325] 1 tab PO Q6H PRN PRN 3 Days #9 tab PRN Reason: Pain Referrals: Sarah Carrizales MD [STAFF PHYSICIAN] -
[2018-11-07] MEDS: Ondansetron 4 MG/2 ML Vial IV (07:15)
[2018-11-07] MEDS: Morphine 4 MG/ML Syringe IV ×2 (07:15→08:15)
[2018-11-07] MEDS: 0.9% Normal Saline 1,000 ML 999 ML IV (07:15)
[2018-11-07 07:21] LABS: Absolute Lymphocyte Count 2.38 X10^3/ul (0.83-4.51); Absolute Neutrophil Count 5.8 X10^3/uL (2.0-7.7); Basophil# 0.03 X10^3/uL; Basophil% 0.3 % (0-1); Eosinophils% 4.4 % (0-5); Hematocrit 40.6 % (37-47); Hemoglobin 13.1 g/dl (12.0-15.0); Lymphocyte # 2.38 X10^3/ul (4.0); Lymphocyte % 26.1 % (19-41); Mean Corp Hgb Conc 32.3 g/gl (32-36); Mean Corpuscular Hgb 27.9 pg (27.0-32.0); Mean Corpuscular Volume 86.4 fL (81-99); Mean Platelet Vol. 9.5 fl (6.2-12.0); Monocyte# 0.52 X10^3/uL; Monocyte% 5.7 % (0-10); Neutrophil # 5.78 X10^3/uL (2.7-7.7); Neutrophil % 63.4 % (47-70); Platelet Count 267 K/mm3 (150-450); RBC Distribution Width CV 14.9 % (11.6-14.6); RBC Distribution Width SD 47.8 fl (35.1-43.9); White Blood Count 9.1 K/mm3 (4.4-11.0)
[2018-11-07 07:22] LABS: POSITIVE COUNT NO; POSITIVE DIFFERENTIAL NO; POSITIVE MORPHOLOGY NO
[2018-11-07 07:34] LABS: ALB/GLOB Ratio 0.8 RATIO (0.9-2.4); AST(SGOT) 13 U/L (15-37); Alanine Aminotransfer ALT/SGPT 21 U/L (13-56); Albumin, Serum 3.5 g/dL (3.2-5.0); Alkaline Phosphatase 63 U/L (45-117); Anion Gap 8 (5-15); BUN 9 mg/dL (7-18); BUN/Creat Ratio 12.3 RATIO (10-20); Calcium,Total 8.8 mg/dL (8.5-10.1); Chloride 106 mmol/L (98-107); Creatinine, Serum 0.73 mg/dL (0.55-1.02); EST Glomerular Filtration Rate 94 mL/min (>60); Est Glom Filt Rate - Afr Amer 113 mL/min (>60); Estimated Creatinine Clearance 104.37 ml/min; Globulin 4.6 g/dL (2.2-4.2); Glucose 102 mg/dL (74-106); Lipase 81 U/L (73-393); Potassium 3.9 mmol/L (3.5-5.1); Protein, Total 8.1 g/dL (6.4-8.2); Sodium Level 141 mmol/L (136-145)
[2018-11-07 08:57] VITALS: BP 183/96; PULSE 60; RESP 18; O2SAT 98
== END 2018-11-07 09:00 | disposition home or self-care (01) ==
PROVIDERS: Emergency Medicine; Emergency Provider Emergency Medicine; Family Provider Family Medicine; PCP Family Medicine
DX: I88.0 Nonspecific mesenteric lymphadenitis (principal); K80.50 Calculus of bile duct without cholangitis or cholecystitis without obstruction; K21.9 Gastro-esophageal reflux disease without esophagitis; Z72.0 Tobacco use
CPT/HCPCS: 76705; 80053; 83690; 85025; 96361; 96374; 96375; 96376; 99283; J7030; J2405

== ENCOUNTER 2018-11-08 09:25 | Day surgery (SDC) | payer BC, SELFPAY ==
[2018-11-06 13:48] VITALS: BMI 49.6
[2018-11-07 06:25] VITALS: BMI 48.6
[2018-11-08] VITALS (7 sets, daily range): BP systolic 146–185; BP diastolic 95–101; PULSE 63–72; RESP 18; TEMP 36.6–37.1; O2SAT 96–99; BMI 48.1
--- NOTE | 2018-11-08 10:30 | IMM_PTH ---
PATIENT: ELY BAH LOC: EN U#:[id number] AGE/SX: 38/F ROOM: RE11/08/[address]: Dr. Sarah Carrizales MD : 1980 BED: DIS: 11/08/2018 SPEC #: [id number] RECD: 11/08/18 13:01 STATUS: ORTIZ REAide #: [id number] JET: 11/08/18 10:[address]: Sarah Carrizales DEPT: IMMUNOHISTOCHEMISTRY RECD BY: Linnea Toledo ENTERED: 11/08/18 13:01 SP TYPE: IMMUNO OTHR DR: Dr. Rigo Coats MD Tissues: A - Stomach, NOS Procedures: H Pylori (initial) PHYSICIAN & INSTITUTION [place] [id number] SPECIMEN INFORMATION: Tissue Source: A - Antrum biopsy Clinical Info: Epigastric pain, cholelithiasis Specimen Number: [id number] CPT code: 11767 METHODOLOGY: Deparaffinized sections of prefer/formalin-fixed tissue or PAP/DQ stained slides are incubated with monoclonal/polyclonal antibodies/oligonucleotide probes. Localization is made via biotin free immunoperoxidase method. Appropriate controls are performed and reacted as expected. Results on target cell population are indicated in the following table: RESULTS: ANTIBODY / CLONE RESULT Block A H Pylori (polyclonal) negative These tests were developed and their performance characteristics determined by [facility]. They may not have been cleared or approved by the U.S. Food and Drug Administration. The FDA has determined that such clearance or approval is not necessary. INTERPRETATION: A. Antrum, biopsy: Negative for Helicobacter pylori organisms. AM:jayme 11/09/18
--- NOTE | 2018-11-08 10:30 | EGD_PTH ---
PATIENT: ELY BAH LOC: EN U#:[id number] AGE/SX: 38/F ROOM: RE11/08/[address]: Dr. Sarah Carrizales MD : 1980 BED: DIS: 11/08/2018 SPEC #: [id number] RECD: 11/08/18 11:06 STATUS: ORTIZ CLAIRE #: [id number] JET: 11/08/18 10:[address]: Sarah Carrizales DEPT: SURGICAL PATHOLOGY RECD BY: Joel Coles ENTERED: 11/08/18 11:24 SP TYPE: EGD BIOPSY CHRISTA DR: Dr. Rigo Coats MD Tissues: A - Gastric mucous membrane B - Gastric mucous membrane Procedures: Special Stain Group II Surgery Specimen Level IV Alcian Blue/PAS (control) HEADER OPERATION: EGD ([facility]) PRE-OP DIAGNOSIS: Epigastric pain, cholelithiasis TISSUE SUBMITTED: A - Antrum biopsy for H. pylori and path, B - GE junction biopsy MICROSCOPIC DIAGNOSIS A. Gastric antrum, biopsy: Mild chronic gastritis. See comment. B. Gastroesophageal junction, biopsy: Gastric mucosa with mild chronic inflammation. No evidence of intestinal metaplasia. See comment. AM:jayme 11/09/18 COMMENT A. The results of immunohistochemistry for Helicobacter pylori will be reported separately ([id number]). B. Alcian blue/PAS stain with matched control supports the above diagnosis. MICROSCOPIC DESCRIPTION Slides are reviewed. GROSS DESCRIPTION A - Received in fixative is one container labeled with the patient's name and designated antrum biopsy. The specimen consists of one irregular fragment of light nails soft tissue that measures 0.3 x 0.3 x 0.1 cm. The specimen is totally submitted in one cassette. B - Received in fixative is one container labeled with the patient's name and designated GE junction biopsy. The specimen consists of one irregular fragment of light nails soft tissue that measures 0.3 x 0.3 x 0.1 cm. The specimen is totally submitted in one cassette. / SJ:jayme 11/08/18 TC:3 CPT: 28902 x2, 11546
--- NOTE | 2018-11-08 10:53 | OP.ENDO_ITS ---
Patient Name: Jazmín Monteiro Procedure Date: 11/08/2018 10:00 AM Date of : 1980 Age: 38 Procedure: Upper GI endoscopy Indications: Epigastric abdominal pain Providers: Sarah Carrizales MD Medicines: Monitored Anesthesia Care Patient Profile: This is a 38 year old female. Body Mass Index: 48. Complications: No immediate complications. Procedure: Pre-Anesthesia Assessment: - Prior to the procedure, a History and Physical was performed, and patient medications and allergies were reviewed. The patient's tolerance of previous anesthesia was also reviewed. The risks and benefits of the procedure and the sedation options and risks were discussed with the patient. All questions were answered, and informed consent was obtained. Prior Anticoagulants: The patient has taken no previous anticoagulant or antiplatelet agents. ASA Grade Assessment: III - A patient with severe systemic disease. After reviewing the risks and benefits, the patient was deemed in satisfactory condition to undergo the procedure. After obtaining informed consent, the endoscope was passed under direct vision. Throughout the procedure, the patient's blood pressure, pulse, and oxygen saturations were monitored continuously. The gastroscope was introduced through the mouth, and advanced to the second part of duodenum. The upper GI endoscopy was accomplished without difficulty. The patient tolerated the procedure well. Scope In: 10:36:32 AM Scope Out: 10:46:23 AM Total Procedure Duration Time 0 hours 9 minutes 51 seconds Findings: The Z-line was irregular and was found 39 cm from the incisors. Biopsies were taken with a cold forceps for histology. Mildly erythematous mucosa without bleeding was found in the gastric antrum. Small amount of bile reflux into stomach seen. Biopsies were taken with a cold forceps for histology. Biopsies were taken with a cold forceps for Helicobacter pylori cultures. The examined duodenum was normal. The cardia and gastric fundus were normal on retroflexion. Impression: - Z-line irregular, 39 cm from the incisors. Biopsied. - Erythematous mucosa in the antrum. Biopsied. - Normal examined duodenum. Recommendation: - Await pathology results. - Use sucralfate tablets 1 gram PO QID for 2 weeks. - Continue present medications. Procedure Code(s): --- Professional --- 79269, Esophagogastroduodenoscopy, flexible, transoral; with biopsy, single or multiple Diagnosis Code(s): --- Professional --- K22.8, Other specified diseases of esophagus K31.89, Other diseases of stomach and duodenum R10.13, Epigastric pain CPT copyright 2017 [employer]. All rights reserved. The codes documented in this report are preliminary and upon associate biological sales review may be revised to meet current compliance requirements. MD Sarah Aldana MD 11/08/2018 10:52:54 AM This report has been signed electronically. Number of Addenda: 0 Note Initiated On: 11/08/2018 10:00 AM
== END 2018-11-08 11:49 | disposition home or self-care (01) ==
LOC: EN 09:28 → AC 09:28
PROVIDERS: Family Provider Family Medicine; PCP Family Medicine; Referring Provider Surgery; Visit Provider Surgery
PROC: 0DJ08ZZ Inspection of Upper Intestinal Tract, Via Natural or Artificial Opening Endoscopic (ICD-10-PCS; CPT 43235; principal; 2018-11-08 10:25)
DX: K29.50 Unspecified chronic gastritis without bleeding (principal); K21.9 Gastro-esophageal reflux disease without esophagitis; K22.8 Other specified diseases of esophagus; K80.20 Calculus of gallbladder without cholecystitis without obstruction; R10.13 Epigastric pain; I10 Essential (primary) hypertension; F17.200 Nicotine dependence, unspecified, uncomplicated
CPT/HCPCS: 43239; 88305; 88313; 88342; J7120

== ENCOUNTER → 2018-11-17 09:37 | Outpatient (CLI) | payer BC, SELFPAY ==
[2018-11-08 10:01] VITALS: BMI 48.1
[2018-11-17 12:07] LABS: Hemoglobin A1c 5.5 % (4.2-6.3)
[2018-11-17 12:09] LABS: Vitamin D,25 Hydroxy 9.1 ng/mL (29.95-100.01)
== END ==
PROVIDERS: Family Provider Family Medicine; PCP Family Medicine; Visit Provider Family Medicine
DX: E55.9 Vitamin D deficiency, unspecified (principal); R73.09 Other abnormal glucose
CPT/HCPCS: 36415; 82306; 83036

== ENCOUNTER 2019-04-16 01:42 | Emergency (ER) | payer MEDICAID, SELFPAY ==
[2018-11-08 10:01] VITALS: BMI 48.1
[2019-04-16 01:43] VITALS: BP 199/93; PULSE 84; RESP 16; TEMP 36.8; O2SAT 100; BMI 51.5
--- NOTE | 2019-04-16 02:00 | ED.VISSUMM ---
- ER Visit Summary Date of Service: 04/16/19 Chief Complaint: Headache History of Present Illness: The patient is a 38 F who presents with a headache that is been getting worse over the past 3 days. Patient states her headache is generalized. Patient admits to some nausea but denies any vomiting. Patient states she has had similar headaches in the past with her menstrual period. Patient states she is at the end of her menstrual period presently. Patient states these are usually at the beginning of her menstrual period. Patient admits to some photophobia. Patient admits to some sinus drainage. Patient denies any paresthesias or weakness. Patient denies any visual changes. Patient denies any fevers or chills. Physical Examination: Vital signs are stable except for an elevated blood pressure 199/93. Patient is afebrile. Patient is in no acute distress. Cranial nerves II through XII are intact. Strength is 5/5 bilaterally in the upper and lower extremities. There are no sensory deficits noted. Heart was regular rate and rhythm. Lungs are clear and equal bilaterally. Abdomen is soft. Bowel sounds are normal. There is no tenderness. Emergency Department Course and Treatment: Patient was given IV fluids. Patient was given injections of Compazine, Benadryl, and Toradol. Patient is feeling better on reevaluation. Patient was instructed to rest in a dark quiet room. Patient was instructed to follow-up with her primary care physician in 5 to 7 days. Patient understood and was agreeable with the plan. All questions were answered. Disposition: Discharge home Impression: Headache This note was generated with [employer] dictation software. It may contain incorrect words, spelling, and punctuation that were not noted in review of the chart prior to signing ED Disposition - Plan for ED Patient: Disposition: Home or Assisted Living Diagnosis: Headache Instructions: HEADACHE, Unspecified Referrals: [facility] Doctor,Out of [Primary Care Provider] - 3-5 Days
[2019-04-16] MEDS: proCHLORPERazine 10 MG/2 ML Vial IV (02:08)
[2019-04-16] MEDS: 0.9% Normal Saline 1,000 ML 999 ML IV (02:08)
[2019-04-16] MEDS: Ketorolac 30 MG/ML Syringe IV (02:09)
[2019-04-16] MEDS: DiphenhydrAMINE 50 MG/ML Syringe 25 MG IV (02:09)
[2019-04-16 03:03] VITALS: BP 121/62; PULSE 76; RESP 17; O2SAT 96
== END 2019-04-16 03:05 | disposition home or self-care (01) ==
PROVIDERS: Emergency Provider Emergency Medicine; Family Provider Family Medicine; PCP Family Medicine
DX: R51 Headache (principal); J34.89 Other specified disorders of nose and nasal sinuses; R05 Cough; R11.0 Nausea; M54.2 Cervicalgia; H53.149 Visual discomfort, unspecified; E66.9 Obesity, unspecified; E28.2 Polycystic ovarian syndrome; F17.200 Nicotine dependence, unspecified, uncomplicated
CPT/HCPCS: 96361; 96374; 96375; 99284; J7030

== ENCOUNTER → 2019-05-30 16:05 | Outpatient (CLI) | payer MEDICAID, SELFPAY ==
[2019-05-30 14:49] VITALS: BMI 51.5
[2019-05-30 17:00] LABS: Absolute Lymphocyte Count 3.47 X10^3/uL (0.83-4.51); Absolute Neutrophil Count 5.7 X10^3/uL (2.0-7.7); Basophil# 0.08 X10^3/uL; Basophil% 0.8 % (0-1); Eosinophil# 0.53 X10^3/uL; Eosinophils% 5.1 % (0-5); Hematocrit 39.6 % (37-47); Lymphocyte # 3.47 X10^3/ul (4.0); Lymphocyte % 33.6 % (19-41); Mean Corp Hgb Conc 32.8 g/dL (32-36); Mean Corpuscular Hgb 27.7 pg (27.0-32.0); Mean Corpuscular Volume 84.4 fL (81-99); Mean Platelet Vol. 10.1 fl (6.2-12.0); Monocyte# 0.59 X10^3/uL; Monocyte% 5.7 % (0-10); NRBC Flagged by Analyzer 0 % (0-5); Neutrophil # 5.65 X10^3/uL (2.7-7.7); Neutrophil % 54.6 % (47-70); Platelet Count 276 K/mm3 (150-450); RBC Distribution Width CV 15.3 % (11.6-14.6); RBC Distribution Width SD 46.5 fl (35.1-43.9); Red Blood Count 4.69 M/mm3 (4.2-5.4); White Blood Count 10.3 K/mm3 (4.4-11.0)
[2019-05-30 17:28] LABS: Prolactin 5.4 ng/mL; Thyroid Stim Hormone (TSH) 1.03 uIU/mL (0.358-3.74)
[2019-06-02 05:06] LABS: DHEA Sulfate 51.7 ug/dL (57.3-279.2)
[2019-06-02 09:31] LABS: Testosterone Free 0.4 pg/mL (0.0-4.2)
[2019-06-05 14:55] LABS: 17-Hydroxyprogesterone 16 ng/dL (.)
== END ==
PROVIDERS: Family Provider Nurse Practitioner; PCP Nurse Practitioner; Referring Provider Obstetrics & Gynecology; Visit Provider Obstetrics & Gynecology
DX: E28.2 Polycystic ovarian syndrome (principal)
CPT/HCPCS: 36415; 82627; 83498; 84146; 84402; 84439; 84443; 85025; 82626

== ENCOUNTER → 2019-06-01 11:19 | Outpatient (CLI) | payer MEDICAID, SELFPAY ==
[2019-05-30 14:49] VITALS: BMI 51.5
[2019-06-07 04:07] LABS: Dilute Russell Viper Venom 34.2 sec (0.0-47.0); Homocyst(e)ine 10.8 umol/L (0.0-15.0); PTT-Lupus Anticoagulant 31.2 sec (0.0-51.9); Protein C, Functional 106 % (73-180); dPT CONFIRMATION RATIO 1.16 Ratio (0.00-1.40)
[2019-06-07 13:08] LABS: Activated Protein C Resistance 2.9 ratio (2.2-3.5); Anti-Cardiolipin Ab, IgG, Qn < 9 GPL U/mL (0-14); Anti-Cardiolipin Ab, IgM, Qn < 9 MPL U/mL (0-12); Antithrombin 3 Function 85 % (75-135); Beta-2-Glycoprotein I IgG <9 (0-20); Beta-2-Glycoprotein I IgM <9 (0-32); Interpretation Comment: (.); Protein S, Free 85 % (57-157)
== END ==
PROVIDERS: Family Provider Nurse Practitioner; PCP Nurse Practitioner; Referring Provider Obstetrics & Gynecology; Visit Provider Obstetrics & Gynecology
DX: N93.9 Abnormal uterine and vaginal bleeding, unspecified (principal)
CPT/HCPCS: 36415; 81240; 81241; 83090; 85300; 85303; 85307; 85420; 85613; 85705; 85732

== ENCOUNTER → 2019-06-07 09:31 | Outpatient (CLI) | payer MEDICAID, SELFPAY ==
[2019-05-30 14:49] VITALS: BMI 51.5
--- NOTE | 2019-06-07 09:33 | VDLE_ITS ---
Reason For Study: R/O DVT RIGHT LEFT GSV is normal. GSV is normal. CFV is compressible, spontaneous, phasic, CFV is compressible, spontaneous, phasic, competent and demonstrates normal competent, and demonstrates normal augmentation. augmentation. FV is compressible, spontaneous, phasic, FV is compressible, spontaneous, phasic, competent and demonstrates normal competent and demonstrates normal augmentation. augmentation. POP V is compressible, spontaneous, phasic, POP V is compressible, spontaneous, phasic, competent and demonstrates normal competent and demonstrates normal augmentation. augmentation. T/P Trunk is compressible. T/P Trunk is compressible. PTV is compressible. PTV is compressible. RT PerV is compressible. LT PerV is compressible. Procedure Exam performed in department. A preliminary report was called and/or faxed to [facility]. Interpretation Summary No evidence for acute deep venous thrombosis bilateral lower extremities with patent and compressible bilateral great saphenous veins. Ordering Physician: Nancy Sheridan Referring Physician: Ilsa Rashid Performed By: Diana Sanchez RVT
--- NOTE | 2019-06-07 10:02 | US_ITS ---
HISTORY:AUB abnormal uterine bleeding EXAMINATION: US Pelvis Non-OB Complete TECHNIQUE: Transabdominal and transvaginal (for optimal evaluation of the adnexa) pelvic ultrasound was performed. Grayscale, spectral waveform, and color flow Doppler evaluation of the adnexa. COMPARISON: None FINDINGS: UTERUS: retroverted. The uterus measures 9.5 x 6.4 x 3.9 cm. There is no uterine mass. The endometrial stripe measures 0.81 cm. T in AP diameter which is within normal limits. There is fluid seen within the endometrial canal RIGHT OVARY: Not visualized on this study due to bowel gas. LEFT OVARY: . Not visualized on the study due to bowel gas... FREE FLUID: Small amount US/Pelvic (Non ) IMPRESSION: The ovaries are not visualized on this study due to bowel gas The uterus is retroverted and the endometrial canal is within normal limits however there is fluid with within the canal. Small amount of fluid is seen within the posterior cul-de-sac at 0154 Reported and signed by: Gracy Vaughan DO Electronically Signed: Gracy Vaughan DO at 1:53 EDT Tel , Service support ,
--- NOTE | 2019-06-07 10:02 | US_ITS ---
HISTORY:AUB abnormal uterine bleeding EXAMINATION: US Pelvis Non-OB Complete TECHNIQUE: Transabdominal and transvaginal (for optimal evaluation of the adnexa) pelvic ultrasound was performed. Grayscale, spectral waveform, and color flow Doppler evaluation of the adnexa. COMPARISON: None FINDINGS: UTERUS: retroverted. The uterus measures 9.5 x 6.4 x 3.9 cm. There is no uterine mass. The endometrial stripe measures 0.81 cm. T in AP diameter which is within normal limits. There is fluid seen within the endometrial canal RIGHT OVARY: Not visualized on this study due to bowel gas. LEFT OVARY: . Not visualized on the study due to bowel gas... FREE FLUID: Small amount US/Transvaginal Non- IMPRESSION: The ovaries are not visualized on this study due to bowel gas The uterus is retroverted and the endometrial canal is within normal limits however there is fluid with within the canal. Small amount of fluid is seen within the posterior cul-de-sac at 0154 Reported and signed by: Gracy Vaughan DO Electronically Signed: Gracy Vaughan DO at 1:53 EDT Tel , Service support ,
== END ==
PROVIDERS: Family Provider Nurse Practitioner; PCP Nurse Practitioner; Referring Provider Obstetrics & Gynecology; Visit Provider Obstetrics & Gynecology
DX: E28.2 Polycystic ovarian syndrome (principal); N93.9 Abnormal uterine and vaginal bleeding, unspecified
CPT/HCPCS: 76830; 76856; 93970

== ENCOUNTER 2020-04-27 20:26 | Emergency (ER) | payer MEDICAID, SELFPAY ==
[2019-07-02 10:18] VITALS: BMI 51.5
[2020-04-27 20:27] VITALS: BP 172/94; PULSE 92; RESP 16; TEMP 36.9; O2SAT 100; BMI 50.3
--- NOTE | 2020-04-27 21:14 | ED.DCSUM_ITS ---
History of Present Illness Chief Complaint: Edema Informant: Patient Onset: Weeks Context: Gradual Onset Current Severity: Mild Maximum Severity: Moderate Narrative: Patient presents secondary to swelling of her legs and feet. Symptoms been ongoing for several weeks. She was seen by her PCP couple weeks ago who just told her to make sure she is up and walking regularly. She does report a DVT in her left leg a couple years ago. She had a recent ultrasound that showed no evidence of DVT and is currently been having symptoms bilaterally that improved with elevating her feet. 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 She states by the end of the night her feet will be very tight and swollen. Today she had some red ramos around her lower legs from the tension on the capillaries. She states she used to be on hydrochlorothiazide, but was switched to Norvasc secondary to dehydration. She is wondering if a diuretic might benefit her. - Past Medical History (1) Anxiety Status: Chronic (2) DVT (deep venous thrombosis) Status: Resolved (3) Hydradenitis Status: Chronic Comment: referral back to derm, consider plastics referral. encouraged weight loss and cultures of any active areas. bactrim for now, s/p 30 days doxycycline (4) Hypertension Status: Chronic (5) PCOS (polycystic ovarian syndrome) Status: Chronic Comment: low DHEAS, otherwise normal bloodwork and imaging. recommend IUD fu for insertion. recommend pcp eval for low DHEAS Past Medical History - Allergies and Home Meds Allergies/Adverse Reactions: Allergies No Known Allergies Allergy (Verified 04/27/20 20:29) Primary Care Physician: Ilsa Rashid NP-C [Primary Care Provider] - 1-2 Weeks Prior records reviewed: Yes Smoking Status: Current every day smoker - Family History Maternal Family History: Family History (Last Reviewed 07/02/19 @ 10:18 by Marilee Pena) Father Diabetes Heart disease Hypertension Family History: Reports: No pertinent history Review of Systems General: Denies: Chills, Fever Eyes: Denies: Visual changes - bilaterally ENT: Denies: Bilateral ear pain Cardiovascular: Denies: Chest pain Respiratory: Denies: Dyspnea Gastrointestinal: Denies: Abdominal pain Musculoskeletal: Reports: Swelling, Extremity Pain - Legs feel tight Skin: Reports: Abscess Neurological: Denies: Headache Allergy: Denies: Uticaria Physical Exam Vital Signs/Narrative: Vital Signs Temp Pulse Resp BP Pulse Ox 07/26/20 20:27 98.4 F 92 16 172/94 H 100 Inital Vital Signs reviewed: Yes General: Well nourished, Well developed Head: Normocephalic ENT: Moist mucous membranes Neck: Supple Cardiovascular: Regular rate, Regular rhythm Respiratory: No distress, CTA bilaterally Abdomen: Soft, Nontender Extremities: Edema - 3+ lower extremity edema, symmetric. Some erythematous ramos noted on the lower legs consistent with capillary pressure injury. No sign of cellulitis or open wound. Skin: - - Healing abscesses on her abdomen consistent with hidradenitis supprativa. Neurological: Alert, Oriented x3 Psychological: Normal affect Diagnostic/Tx/Re-eval - Medical Decision Making Clinically patient does not have sign of DVT. We discussed use of compression stockings when she is at work and on her feet a lot. She will be given a short burst of Lasix to help get some fluid off. We discussed elevating her feet appropriately. She will be given a course of doxycycline to help with her hidradenitis. ED Disposition - Plan for ED Patient: Disposition: Home or Assisted Living Diagnosis: Lower extremity edema, Hydradenitis Instructions: ED Peripheral Edema, Bilateral Prescriptions: Doxycycline 100 mg PO BID #20 cap Transmission Status: Received by TANI JANE RD Furosemide [Lasix] 40 mg PO DAILY #5 tab Transmission Status: Received by TANI JANE RD Referrals: Ilsa Rashid, [employer] [Primary Care Provider] - 1-2 Weeks
[2020-04-27] MEDS: Doxycycline 100 MG CAPSULE PO (21:43)
[2020-04-27 21:52] VITALS: RESP 18
== END 2020-04-27 21:55 | disposition home or self-care (01) ==
PROVIDERS: Emergency Provider Emergency Medicine; PCP Nurse Practitioner
DX: R60.0 Localized edema (principal); L73.2 Hidradenitis suppurativa; I10 Essential (primary) hypertension; F41.9 Anxiety disorder, unspecified; F17.200 Nicotine dependence, unspecified, uncomplicated; Z86.718 Personal history of other venous thrombosis and embolism
CPT/HCPCS: 99282

== ENCOUNTER 2020-06-18 19:55 | Emergency (ER) | payer MEDICAID, SELFPAY ==
[2020-06-18 19:56] VITALS: BP 149/99; PULSE 83; RESP 16; TEMP 36.5; O2SAT 99; BMI 49.9
[2020-06-18 20:50] VITALS: BP 152/91; PULSE 98; RESP 14; O2SAT 99
--- NOTE | 2020-06-18 21:46 | ED.VIS.GEN ---
History of Present Illness Chief Complaint: Cold Sx Informant: Patient Onset: Days Context: Gradual Onset Current Severity: Moderate Maximum Severity: Moderate Narrative: Patient presents secondary to sinus pressure and headache for the past 3 days. She states she had a telehealth visit with her doctor who told her to take allergy medication which she takes on a regular basis. They also added Flonase but states is not helping. Patient does states that she has history of migraines and is not sure if this headache is more sinus related or migrainous. She denies fever or chills. She does have some frontal sinus pressure but really does not feel like she has a lot of congestion or runny nose. Patient does have a history of hidradenitis and states that she had an abscess that recently drained. In light of this she took some leftover Zithromax that she has had at home and states she has 2 more days of this. - Past Medical History (1) Anxiety Status: Chronic (2) Hypertension Status: Chronic (3) DVT (deep venous thrombosis) Status: Resolved Past Medical History - Allergies and Home Meds Allergies/Adverse Reactions: Allergies No Known Allergies Allergy (Verified 04/27/20 20:29) Primary Care Physician: Kathy Adams MD [NON-STAFF] - Yobany Miner MD [STAFF PHYSICIAN] - Rikki Medina MD [Primary Care Provider] - Prior records reviewed: Yes Lives: With Family Smoking Status: Heavy Smoker (>10/day) - Family History Maternal Family History: Family History (Last Reviewed 07/02/19 @ 10:18 by Marilee Pena) Father Diabetes Heart disease Hypertension Family History: Reports: No pertinent history Review of Systems General: Denies: Chills, Fever Eyes: Denies: Visual changes - bilaterally ENT: Reports: - - Frontal sinus pressure. Denies: Bilateral ear pain Cardiovascular: Denies: Chest pain Respiratory: Denies: Dyspnea, Cough Gastrointestinal: Reports: Nausea. Denies: Abdominal pain, Vomiting Musculoskeletal: Denies: Swelling, Extremity Pain Skin: Reports: Wounds. Denies: Rash Neurological: Reports: Headache Hematologic: Denies: Easy bruising, Easy bleeding Allergy: Denies: Uticaria Physical Exam Vital Signs/Narrative: Vital Signs Temp Pulse Resp BP Pulse Ox 06/18/20 20:50 98 14 152/91 H 99 06/18/20 19:56 97.7 F L 83 16 149/99 H 99 Inital Vital Signs reviewed: Yes General: Well nourished, Well developed Head: Normocephalic ENT: Moist mucous membranes, Sinus tenderness - Mild frontal sinus tenderness. No tenderness of the maxillary sinuses., - - Scant amount of dry wax noted in the ear canals bilaterally. TMs are clear. Neck: Supple Cardiovascular: Regular rate, Regular rhythm Respiratory: No distress, CTA bilaterally Abdomen: Soft, Nontender Skin: - - Healing cutaneous abscess of the left anterior abdominal wall. Multiple scars from previous abscesses. Neurological: Alert, Oriented x3 Diagnostic/Tx/Re-eval - Medical Decision Making Patient will be given prescriptions for Toradol, Reglan, Benadryl which she will take when she gets home. She does not have a ride tonight. She is given referral to dermatology for further evaluation of her hidradenitis. Patient will continue the course of Zithromax she is currently taking. ED Disposition - Plan for ED Patient: Disposition: Home or Assisted Living Diagnosis: Headache, Hidradenitis Instructions: ED Headache Sinus Prescriptions: DiphenhydrAMINE [Benadryl] 50 mg PO TID PRN PRN #20 cap PRN Reason: Migraine Symptoms Prescription Printed Metoclopramide [Reglan] 10 mg PO Q8H PRN PRN #10 tab PRN Reason: Migraine Symptoms Prescription Printed Ketorolac [Toradol] 10 mg PO Q8H PRN #10 tab PRN Reason: Migraine Symptoms Prescription Printed Referrals: Rikki Medina MD [Primary Care Provider] - Yobany Miner MD [STAFF PHYSICIAN] - Kathy Adams MD [NON-STAFF] -
[2020-06-18 22:52] VITALS: BP 158/103; PULSE 92; RESP 15; O2SAT 98
== END 2020-06-18 23:04 | disposition home or self-care (01) ==
PROVIDERS: Emergency Provider Emergency Medicine; PCP Internal Medicine
DX: R51 Headache (principal); L73.2 Hidradenitis suppurativa; I10 Essential (primary) hypertension; F17.200 Nicotine dependence, unspecified, uncomplicated
CPT/HCPCS: 99283

== ENCOUNTER 2020-07-07 21:15 | Emergency (ER) | payer MEDICAID, SELFPAY ==
[2020-07-07 21:16] VITALS: BP 157/88; PULSE 103; RESP 18; TEMP 36.9; O2SAT 99; BMI 51.8
--- NOTE | 2020-07-07 21:48 | EKG12_ITS ---
Test Reason : DYSRHYTHMIA Blood Pressure : / mmHG Vent. Rate : 102 BPM Atrial Rate : 102 BPM P-R Int : 124 ms QRS Dur : 080 ms QT Int : 334 ms P-R-T Axes : 043 007 037 degrees QTc Int : 435 ms Sinus tachycardia Otherwise normal ECG Confirmed by VIV ARREDONDO, LITA ([id number]), editor newspaper ANTHONY LOWRY ([id number]) on 07/09/2020 9:37:27 AM Referred By: PAULA Confirmed By:LITA NAM MD
[2020-07-07 21:59] LABS: Absolute Lymphocyte Count 5.05 X10^3/uL (0.83-4.51); Absolute Neutrophil Count 5.1 X10^3/uL (2.0-7.7); Basophil# 0.04 X10^3/uL; Basophil% 0.4 % (0-1); Eosinophil# 0.41 X10^3/uL; Eosinophils% 3.6 % (0-5); Hematocrit 42.4 % (37-47); Hemoglobin 13.4 g/dL (12.0-15.0); Lymphocyte # 5.05 X10^3/ul (4.0); Lymphocyte % 44.9 % (19-41); Mean Corp Hgb Conc 31.6 g/dL (32-36); Mean Corpuscular Hgb 28.2 pg (27.0-32.0); Mean Corpuscular Volume 89.3 fL (81-99); Mean Platelet Vol. 9.9 fl (6.2-12.0); Monocyte# 0.62 X10^3/uL; Monocyte% 5.5 % (0-10); NRBC Flagged by Analyzer 0 % (0-5); Neutrophil # 5.09 X10^3/uL (2.7-7.7); Neutrophil % 45.3 % (47-70); POSITIVE DIFFERENTIAL YES; Platelet Count 313 K/mm3 (150-450); RBC Distribution Width SD 49.8 fl (35.1-43.9); Red Blood Count 4.75 M/mm3 (4.2-5.4); White Blood Count 11.2 K/mm3 (4.4-11.0)
[2020-07-07 22:00] LABS: Differential Indicated SCAN CRITERIA MET
[2020-07-07 22:06] LABS: Anion Gap 5 (5-15); BUN 8 mg/dL (7-18); BUN/Creat Ratio 9.7 RATIO (10-20); Chloride 109 mmol/L (98-107); Creatinine, Serum 0.82 mg/dL (0.55-1.02); EST Glomerular Filtration Rate 81 mL/min (>60); Est Glom Filt Rate - Afr Amer 98 mL/min (>60); Estimated Creatinine Clearance 91.08 ml/min; Glucose 123 mg/dL (74-106); Magnesium 2.1 mg/dL (1.6-2.6); Potassium 3.5 mmol/L (3.5-5.1); Sodium Level 140 mmol/L (136-145)
[2020-07-07 22:23] LABS: Differential Comment SCANNED
--- NOTE | 2020-07-07 22:27 | ED.DCSUM_ITS ---
History of Present Illness Chief Complaint: Palpitations Informant: Patient Narrative: Presents the emergency department for the evaluation of palpitations. Patient states she was sitting on her couch after dinner watching football she began to feel her heart beat fast and skip beats. She states that this caused her anxiety to kick up. States she is very shaky but that the skipping a beat has stopped. States she had this will her symptoms when she was was on Lopressor. She denies any new medications or gmfs-dww-ebbfhtv medicines. No significant caffeine intake. She states that she has been hypokalemic in the past. - Past Medical History (1) Abnormal uterine bleeding Status: Chronic Comment: h/o DVT, neg thrombophilia panel, plan IUD (2) DVT (deep vein thrombosis) in Status: Chronic (3) Morbid obesity Status: Chronic Comment: discussed weight loss options (4) Anxiety Status: Chronic (5) Hypertension Status: Chronic (6) PCOS (polycystic ovarian syndrome) Status: Chronic Comment: low DHEAS, otherwise normal bloodwork and imaging. recommend IUD fu for insertion. recommend pcp eval for low DHEAS Past Medical History - Allergies and Home Meds Allergies/Adverse Reactions: Allergies No Known Allergies Allergy (Verified 07/07/20 21:22) Primary Care Physician: Rikki Medina MD [Primary Care Provider] - Prior records reviewed: Yes Surgical History: noncontributory Lives: With Family Smoking Status: Current every day smoker Drugs: None - Family History Maternal Family History: Family History (Last Reviewed 07/02/19 @ 10:18 by Marilee Pena) Father Diabetes Heart disease Hypertension Family History: Reports: No pertinent history Review of Systems General: Denies: Chills, Fever, Sweats Eyes: Denies: Visual changes - bilaterally, Diplopia ENT: Denies: Rhinorrhea, Sore throat Cardiovascular: Reports: Palpitations, Heart racing. Denies: Chest pain Respiratory: Denies: Dyspnea, Cough, Dyspnea on exertion Gastrointestinal: Denies: Abdominal pain, Nausea, Vomiting, Diarrhea, Melena, Hematochezia Genitourinary: Denies: Dysuria, Hematuria, Frequency Musculoskeletal: Denies: Back pain, Extremity Pain Skin: Denies: Rash, Wounds Neurological: Denies: Headache, Weakness, Numbness Psych: Reports: Anxiety Physical Exam Vital Signs/Narrative: Vital Signs Temp Pulse Resp BP Pulse Ox 07/07/20 21:16 98.5 F 103 H 18 157/88 H 99 Inital Vital Signs reviewed: Yes General: Well nourished, Well developed, Obese, No Acute Distress Head: Normocephalic, Atraumatic Eyes: Perrl, EOMI ENT: Moist mucous membranes, No rhinorrhea Neck: Supple, Nontender Cardiovascular: Regular rate, Regular rhythm, No murmurs Respiratory: No distress, CTA bilaterally, Chest nontender Abdomen: Soft, Nontender, Nondistended, Normal bowel sounds Back: Nontender, Normal Inspection Extremities: Nontender, No edema Skin: Normal color, No rash Neurological: Alert, Oriented x3, Cranial nerves II-XII grossly intact, Normal Strength, Normal Sensation Psychological: Normal affect, Normal Mood Diagnostic/Tx/Re-eval - EKG Initial EKG Interpretation: Sinus Tachycardia - EKG demonstrates a sinus tachycardia at a rate of 102. There is no concerning features of ACS or ectopy. - Medical Decision Making Patient was observed on the monitor. Her heart rate is been down into the mid 80s. At this point the patient will be discharged home. Instructions to follow -up with primary care ED Disposition - Plan for ED Patient: Disposition: Home or Assisted Living Diagnosis: Palpitations Instructions: ED Palpitations Referrals: Rikki Medina MD [Primary Care Provider] - 1-2 Weeks
[2020-07-07 22:47] VITALS: BP 142/88; PULSE 75; RESP 16; O2SAT 98
== END 2020-07-07 22:49 | disposition home or self-care (01) ==
PROVIDERS: Emergency Provider Emergency Medicine; PCP Internal Medicine
DX: R00.2 Palpitations (principal); F17.200 Nicotine dependence, unspecified, uncomplicated; E66.01 Morbid (severe) obesity due to excess calories; I10 Essential (primary) hypertension; Z86.718 Personal history of other venous thrombosis and embolism
CPT/HCPCS: 80048; 83735; 85025; 93005; 99285; A4216

== ENCOUNTER → 2020-07-17 10:39 | Outpatient (CLI) | payer MEDICAID, SELFPAY ==
[2020-07-07 21:16] VITALS: BMI 51.8
== END ==
PROVIDERS: PCP Internal Medicine; Visit Provider Nurse Practitioner
DX: R00.2 Palpitations (principal)
CPT/HCPCS: 93225; 93226

== ENCOUNTER 2020-11-11 22:44 | Emergency (ER) | payer MEDICAID, SELFPAY ==
[2020-11-11 22:45] VITALS: BP 208/112; PULSE 93; RESP 18; TEMP 36.4; O2SAT 100; BMI 51.1
--- NOTE | 2020-11-11 22:58 | EKG12_ITS ---
Test Reason : DYSRHYTHMIA Blood Pressure : / mmHG Vent. Rate : 080 BPM Atrial Rate : 080 BPM P-R Int : 128 ms QRS Dur : 088 ms QT Int : 384 ms P-R-T Axes : 041 009 023 degrees QTc Int : 442 ms Normal sinus rhythm Normal ECG Confirmed by ANIYA ARREDONDO, ALY ([id number]), film and video editor ANTHONY LOWRY ([id number]) on 11/13/2020 10:30:55 AM Referred By: KAMINI Confirmed By:ALY KWAN MD
--- NOTE | 2020-11-11 22:58 | ED.VIS.GEN ---
History of Present Illness Chief Complaint: General Illness Informant: Patient Narrative: Patient stated she was at home and felt some palpitations this evening. She took her heart rate and it was 110. This concerned her. History of anxiety. She wore an event monitor recently with nothing acute per patient. She never had a cardiac arrhythmia that was documented. Patient stated she has chronic hypertension and takes Norvasc. She started an oral steroid yesterday as she has been feeling well since last Tuesday. She has had intermittent headache weakness and fatigue. She had some sinus congestion and ear congestion. She went to urgent care yesterday. She was started on the steroid for possible coronavirus and had coronavirus testing sent. She stated today she had some discomfort in her mid back. Some aching sensation. She has not had an injury. Denies any urinary symptoms. Current severity mild. Using pjqh-faw-exqptse Tylenol ibuprofen. - Past Medical History (1) Abnormal uterine bleeding Status: Chronic Comment: h/o DVT, neg thrombophilia panel, plan IUD (2) Anxiety Status: Chronic (3) DVT (deep vein thrombosis) in Status: Chronic (4) Hydradenitis Status: Chronic Comment: referral back to derm, consider plastics referral. encouraged weight loss and cultures of any active areas. bactrim for now, s/p 30 days doxycycline (5) Hypertension Status: Chronic (6) Morbid obesity Status: Chronic Comment: discussed weight loss options (7) PCOS (polycystic ovarian syndrome) Status: Chronic Comment: low DHEAS, otherwise normal bloodwork and imaging. recommend IUD fu for insertion. recommend pcp eval for low DHEAS (8) DVT (deep venous thrombosis) Status: Resolved Past Medical History - Allergies and Home Meds Allergies/Adverse Reactions: Allergies No Known Allergies Allergy (Verified 07/07/20 21:22) Primary Care Physician: Rikki Medina MD [Primary Care Provider] - Prior records reviewed: Yes Past Medical History: - - Problem list see Surgical History: noncontributory Lives: With Family Smoking Status: Current every day smoker Alcohol: None Drugs: None - Family History Maternal Family History: Family History (Last Reviewed 07/02/19 @ 10:18 by Marilee Pena) Father Diabetes Heart disease Hypertension Family History: Reports: No pertinent history Review of Systems General: Reports: Fever, Sweats, - - See HPI. Denies: Chills Eyes: Denies: Visual changes - bilaterally, Diplopia ENT: Reports: Rhinorrhea, - - See HPI. Denies: Sore throat Cardiovascular: Reports: Palpitations. Denies: Chest pain Respiratory: Denies: Dyspnea, Cough, Dyspnea on exertion Gastrointestinal: Denies: Abdominal pain, Nausea, Vomiting, Diarrhea, Melena, Hematochezia Genitourinary: Denies: Dysuria, Hematuria, Frequency Musculoskeletal: Reports: Back pain. Denies: Extremity Pain Skin: Denies: Rash, Wounds Neurological: Reports: Headache. Denies: Weakness, Numbness Physical Exam Vital Signs/Narrative: Vital Signs Temp Pulse Resp BP Pulse Ox 11/11/20 22:45 97.6 F L 93 18 208/112 H 100 General: Well nourished, Well developed, No Acute Distress Head: Normocephalic, Atraumatic Eyes: Perrl, EOMI ENT: Moist mucous membranes, No rhinorrhea Neck: Supple, Nontender Cardiovascular: Regular rate, Regular rhythm, No murmurs Respiratory: No distress, CTA bilaterally, Chest nontender Abdomen: Soft, Nontender, Nondistended, Normal bowel sounds Back: Nontender, Normal Inspection Extremities: Nontender, No edema Skin: Normal color, No rash Neurological: Alert, Oriented x3, Cranial nerves II-XII grossly intact, Normal Strength, Normal Sensation Psychological: Normal affect, Normal Mood Diagnostic/Tx/Re-eval - Medical Decision Making EKG obtained upon arrival. Patient monitored on the school bus monitor. Given dose of Toradol for her back discomfort. Urinalysis obtained. Reevaluation of blood pressure 150s over 80s. Patient resting comfortably. Urinalysis shows no evidence of infection. At this time EKG was obtained shows sinus rhythm at a rate of 80 with no acute ischemia or arrhythmia. Patient remains in sinus rhythm on the monitor. She will follow-up as an outpatient. I do not feel she needs other emergent work-up at this time. Her back pain may be musculoskeletal. I have a low suspicion for coronavirus. She will continue her steroids. Blood pressure has come down and likely related to anxiety. ED Disposition - Plan for ED Patient: Disposition: Home or Assisted Living Diagnosis: Palpitations, Hypertension, Back pain Instructions: ED High Blood Pressure ..., ED Palpitations Referrals: Rikki Medina MD [Primary Care Provider] -
[2020-11-11] MEDS: Ketorolac 15 MG/ML Vial IM (23:06)
[2020-11-11 23:22] LABS: Mucous, Urine 0 SEEN /hpf (<or=2+); White Blood Cells 0 SEEN /hpf (0-5)
[2020-11-11 23:23] LABS: Color, Urine Straw (Yellow); Glucose, Dipstick Normal (Normal); Ketone-Dipstick Negative (Negative); Leukocyte Esterase-Dipstick Negative /ul (Negative); Nitrite-Dipstick Negative (Negative); Occult Blood-Urine 50 /ul (Negative); Protein-Dipstick Negative (Negative); Urine Bilirubin Dipstick Negative (Negative); Urine Clarity Clear (Clear); Urine Urobilinogen Normal (Normal)
[2020-11-11 23:30] LABS: Red Blood Cells-Urine 0-5 SEEN /hpf (0-5); Squamous Epithelial Cells - UA 0-5 SEEN /hpf (5-10)
[2020-11-11 23:32] LABS: Bacteria RARE /hpf (None Seen); Yeast-Urine RARE /hpf (None Seen)
[2020-11-11 23:48] VITALS: BP 161/87; PULSE 69; RESP 20; O2SAT 95
== END 2020-11-11 23:49 | disposition home or self-care (01) ==
PROVIDERS: Emergency Provider Emergency Medicine; PCP Internal Medicine
DX: R00.2 Palpitations (principal); I10 Essential (primary) hypertension; M54.9 Dorsalgia, unspecified; F17.200 Nicotine dependence, unspecified, uncomplicated; E66.01 Morbid (severe) obesity due to excess calories; Z68.43 Body mass index [BMI] 50.0-59.9, adult; Z86.718 Personal history of other venous thrombosis and embolism
CPT/HCPCS: 81001; 93005; 96372; 99284

== ENCOUNTER 2021-02-16 03:07 | Emergency (ER) | payer MEDICAID, SELFPAY ==
[2021-02-16 03:11] VITALS: BP 162/111; PULSE 91; RESP 20; TEMP 36.8; O2SAT 100; BMI 51.6
--- NOTE | 2021-02-16 03:14 | CT_ITS ---
STUDY: CT ABDOMEN AND PELVIS WITHOUT CONTRAST REASON FOR EXAM: Female, 40 years old. Kidney Stone RADIATION DOSAGE (If Supplied By Facility): CTDIvol = ( 24.18 ) mGy, DLP = ( 1347.10 ) mGycm TECHNIQUE: Transaxial images were obtained from the dome of the diaphragm to the symphysis pubis without oral contrast, and without intravenous contrast. Sagittal and coronal images were reconstructed. Individualized dose optimization techniques were used for this CT. COMPARISON: None. FINDINGS: The visualized lung bases are unremarkable. The visualized portions of the heart are within normal limits. Normal liver. There are multiple gallstones. Normal spleen. Normal pancreas. Normal bilateral adrenal glands. Normal right kidney. Normal left kidney. Normal visualized stomach. Normal small intestine. Normal colon. There are surgical clips in the region of the appendix consistent with a prior appendectomy. Normal abdominal aorta. Normal inferior vena cava. Normal retroperitoneum. Normal urinary bladder. Normal abdominal wall. Normal osseous structures. CT/Abdomen/Pelvis without Cont IMPRESSION: Cholelithiasis Electronically Signed: Luz Martinez MD at 3:56 EDT Tel , Service support ,
--- NOTE | 2021-02-16 03:14 | ED.VIS.FEGU ---
HPI HPI - Female History of Present Illness Chief Complaint: Flank Pain Narrative Narrative: Patient stated she is having left-sided back pain since yesterday morning. She woke up with it. He got worse tonight a sharp stabbing pain. No history of kidney stones no blood in her urine. No urinary symptoms. It hurts to move and bend and twist. She is some pxdr-nom-kqfplen anti-inflammatories earlier with moderate relief of symptoms. Never had this in the past. History of gallstones on the opposite side. She still has her gallbladder. Current severity is moderate. History of tubal ligation in the past. [facility] Medical History (Updated 02/16/21 @ 04:[address] Barry Vo MD) Anxiety Chest pain Depression DVT (deep venous thrombosis) Gallstones Hidradenitis suppurativa Hypertension PCOS (polycystic ovarian syndrome) Home Medications amlodipine 10 mg tablet 10 mg PO DAILY 05/30/19 [History Last Taken Unknown] cholecalciferol (vitamin D3) 1,000 unit PO DAILY 02/16/21 [History Last Taken Unknown] loratadine [Claritin] 10 mg PO DAILY 02/16/21 [History Last Taken Unknown] oxycodone-acetaminophen [Percocet] 1 tab PO Q8H PRN 3 Days #10 tab 02/16/21 [Rx Last Taken Unknown] Allergy/AdvReac Type Severity Reaction Status Date / Time No Known Allergies Allergy Verified 02/16/21 03:08 Family History Father Diabetes Heart disease Hypertension Surgical History S/P appendectomy Status post section Tubal ligation status Social History Smoking Status: Current every day smoker alcohol intake: never substance use type: does not use caffeine: Yes what type of physical activity do you participate in: walking seatbelt use: always do you feel safe at home: Yes additional social history: Shravan Alejandra ROS ROS ED ROS Narrative ROS General: Denies fever, chills, sweats Eyes: Denies visual changes, blurred vision, double vision ENT: Denies ear pain, rhinorrhea, sore throat Cardiovascular: Denies chest pain, palpitations, heart racing Respiratory: Denies dyspnea, cough, sputum, dyspnea on exertion, orthopnea,PND GI: Denies abdominal pain, nausea, vomiting, diarrhea, constipation, melena : Denies dysuria, hematuria, frequency Musculoskeletal: Denies myalgias, arthralgias, neck pain, see HPI Skin: Denies rash, abscess, abrasions Neuro: Denies headache, weakness, paresthesia Psych: Denies depression, anxiety Endo: Denies polyuria, polydipsia, polyphagia Heme: Denies easy bruising, easy bleeding, lymphadenopathy Allergy: Denies hives, swelling EXAM Physical Exam Narrative Exam Narrative: Vital signs reviewed General: Well-nourished well-developed Head: Normocephalic atraumatic Eyes: Pupils equal round and reactive to light extraocular movements intact ENT: TMs clear no hemotympanum no trauma Neck: Nontender full range of motion Cardiovascular: Regular rate rhythm no murmurs normal S1-S2 Respiratory: No distress clear to auscultation bilaterally chest nontender Abdomen: Soft nontender nondistended normal bowel sounds no masses Back: Tender to palpation left CVA and left paraspinal. Decreased range of motion secondary to pain. Extremities: Nontender active range of motion ?4 extremities no trauma Skin: Normal color no trauma Neuro alert oriented cranial nerves II through XII intact normal strength sensation reflexes Const Vital Signs: 02/16/21 03:11 Temperature 98.3 F Temperature Source Oral Pulse Rate 91 Respiratory Rate 20 H Blood Pressure 162/111 H Blood Pressure Mean 128 Pulse Ox 100 Oxygen Delivery Method Room Air MDM MDM MDM Narrative Medical decision making narrative: Patient given IV fluids Toradol Zofran. Lab work and CT abdomen pelvis obtained. Lab work including CBC BMP urinalysis shows no significant abnormalities. CT abdomen pelvis just shows gallstones. No evidence of kidney stone or other abnormality. Patient felt better after treatment. At this time I feel this is musculoskeletal back pain. She will be given a short course of Percocet. She will rest and ice. Lab Data Labs: Laboratory Results - last 24 hr 02/16/21 02/16/21 02/16/21 03:10 03:10 03:10 WBC 12.8 H RBC 4.74 Hgb 13.6 Hct 42.2 MCV 89.0 MCH 28.7 MCHC 32.2 RDW Std Deviation 47.8 H RDW Coeff of Brigid 14.5 Plt Count 281 MPV 9.8 Immature Gran % (Auto) 0.300 Neut % (Auto) 49.9 Lymph % (Auto) 38.0 [place] % (Auto) 8.3 Eos % (Auto) 2.8 Baso % (Auto) 0.7 Absolute Neuts (auto) 6.4 Absolute Lymphs (auto) 4.87 H Nucleated RBC % 0 Sodium 139 Potassium 3.4 L Chloride 107 Carbon Dioxide 27.0 Anion Gap 5 BUN 10 Creatinine 0.67 Estim Creat Clear Calc 111.47 Est GFR (MDRD) Af Amer 125 Est GFR (MDRD) Non-Af 103 BUN/Creatinine Ratio 15.0 Glucose 97 Calcium 8.4 L Serum , Qual NEGATIVE Urine Color Urine Clarity Urine pH Ur Specific [place] Urine Protein Urine Glucose (UA) Urine Ketones Urine Occult Blood Urine Nitrite Urine Bilirubin Urine Urobilinogen Ur Leukocyte Esterase Urine RBC Urine WBC Ur Squamous Epith Cells Urine Bacteria Urine Mucus 02/16/21 03:25 WBC RBC Hgb Hct MCV MCH MCHC RDW Std Deviation RDW Coeff of Brigid Plt Count MPV Immature Gran % (Auto) Neut % (Auto) Lymph % (Auto) [place] % (Auto) Eos % (Auto) Baso % (Auto) Absolute Neuts (auto) Absolute Lymphs (auto) Nucleated RBC % Sodium Potassium Chloride Carbon Dioxide Anion Gap BUN Creatinine Estim Creat Clear Calc Est GFR (MDRD) Af Amer Est GFR (MDRD) Non-Af BUN/Creatinine Ratio Glucose Calcium Serum , Qual Urine Color Yellow Urine Clarity Clear Urine pH 7.0 Ur Specific [place] 1.010 Urine Protein Negative Urine Glucose (UA) Normal Urine Ketones Negative Urine Occult Blood 10 H Urine Nitrite Negative Urine Bilirubin Negative Urine Urobilinogen Normal Ur Leukocyte Esterase Negative Urine RBC 0 SEEN Urine WBC 0-5 SEEN Ur Squamous Epith Cells 5-10 SEEN Urine Bacteria 2+ Urine Mucus 0 SEEN Radiography Diagnostic Testing: Radiology Impression Abdomen/Pelvis CT 02/16/21 03:14 IMPRESSION: Cholelithiasis Electronically Signed: Luz Martinez MD at 3:56 EDT Tel , Service support , Discharge Plan Triage Chief Complaint: Flank Pain ED Provider: Barry Vo Dx/Rx/DC Orders Clinical Impression: Back pain Instructions: ED Back Pain (Acute or Chronic) Prescriptions: New oxycodone-acetaminophen [Percocet] 5-325 mg tablet 1 tab PO Q8H PRN (Reason: pain) 3 Days Qty: 10 RF: 0 No Action amlodipine 10 mg tablet 10 mg PO DAILY RF: 0 loratadine [Claritin] 10 mg Tablet 10 mg PO DAILY RF: 0 cholecalciferol (vitamin D3) 25 mcg (1,000 unit) tablet 1,000 unit PO DAILY RF: 0 Primary Care Provider: Rikki Medina Referrals: Rikki Medina MD [Primary Care Provider] - Disposition Disposition: Home, self care
[2021-02-16] MEDS: Ketorolac 15 MG/ML Vial IV (03:18)
[2021-02-16] MEDS: Ondansetron 4 MG/2 ML Vial IV (03:18)
[2021-02-16 03:20] LABS: Absolute Lymphocyte Count 4.87 X10^3/uL (0.83-4.51); Absolute Neutrophil Count 6.4 X10^3/uL (2.0-7.7); Basophil# 0.09 X10^3/uL; Basophil% 0.7 % (0-1); Eosinophil# 0.36 X10^3/uL; Eosinophils% 2.8 % (0-5); Hematocrit 42.2 % (37-47); Hemoglobin 13.6 g/dL (12.0-15.0); Lymphocyte # 4.87 X10^3/ul (0.83-4.51); Mean Corp Hgb Conc 32.2 g/dL (32-36); Mean Corpuscular Hgb 28.7 pg (27.0-32.0); Mean Platelet Vol. 9.8 fl (6.2-12.0); Monocyte# 1.07 X10^3/uL; Monocyte% 8.3 % (0-10); NRBC Flagged by Analyzer 0 % (0-5); Neutrophil # 6.39 X10^3/uL (2.7-7.7); Neutrophil % 49.9 % (47-70); Platelet Count 281 K/mm3 (150-450); RBC Distribution Width CV 14.5 % (11.6-14.6); RBC Distribution Width SD 47.8 fl (35.1-43.9); Red Blood Count 4.74 M/mm3 (4.2-5.4); White Blood Count 12.8 K/mm3 (4.4-11.0)
[2021-02-16 03:30] LABS: Mucous, Urine 0 SEEN /hpf (<or=2+); Red Blood Cells-Urine 0 SEEN /hpf (0-5)
[2021-02-16 03:32] LABS: Internal QC Validated? YES +Cl - CLEAR BKGD; Pregnancy, Serum, hCG Quali. NEGATIVE Negative
[2021-02-16 03:35] LABS: Anion Gap 5 (5-15); BUN 10 mg/dL (7-18); Calcium,Total 8.4 mg/dL (8.5-10.1); Chloride 107 mmol/L (98-107); Creatinine, Serum 0.67 mg/dL (0.55-1.02); EST Glomerular Filtration Rate 103 mL/min (>60); Est Glom Filt Rate - Afr Amer 125 mL/min (>60); Estimated Creatinine Clearance 111.47 ml/min; Glucose 97 mg/dL (74-106); Potassium 3.4 mmol/L (3.5-5.1); Sodium Level 139 mmol/L (136-145)
[2021-02-16 03:41] LABS: Color, Urine Yellow (Yellow); Glucose, Dipstick Normal (Normal); Ketone-Dipstick Negative (Negative); Leukocyte Esterase-Dipstick Negative /ul (Negative); Nitrite-Dipstick Negative (Negative); Occult Blood-Urine 10 /ul (Negative); Protein-Dipstick Negative (Negative); Urine Bilirubin Dipstick Negative (Negative); Urine Clarity Clear (Clear); Urine Urobilinogen Normal (Normal)
[2021-02-16 04:12] LABS: Bacteria 2+ /hpf (None Seen); Squamous Epithelial Cells - UA 5-10 SEEN /hpf (5-10); White Blood Cells 0-5 SEEN /hpf (0-5)
[2021-02-16 05:00] VITALS: BP 146/74; PULSE 60; RESP 18; O2SAT 95
== END 2021-02-16 05:01 | disposition home or self-care (01) ==
PROVIDERS: Emergency Provider Emergency Medicine; PCP Internal Medicine
DX: M54.9 Dorsalgia, unspecified (principal); I10 Essential (primary) hypertension; K80.20 Calculus of gallbladder without cholecystitis without obstruction; F17.200 Nicotine dependence, unspecified, uncomplicated; Z79.899 Other long term (current) drug therapy
CPT/HCPCS: 74176; 80048; 81001; 84703; 85025; 96374; 96375; 99283; A4216; J2405

== ENCOUNTER 2021-11-04 12:00 | Outpatient (CLI) | payer MEDICAID, SELFPAY ==
[2021-11-04 12:23] LABS: D-Dimer Quantitative (DVT/PE) 0.82 FEU/ug/m (0.27-0.49)
== END 2021-11-04 23:59 | disposition short-term general hospital (02) ==
LOC: LAB 12:02
PROVIDERS: PCP Internal Medicine; Visit Provider Nurse Practitioner
DX: R07.9 Chest pain, unspecified (principal); Z86.16 Personal history of COVID-19
CPT/HCPCS: 85379

== ENCOUNTER 2021-11-13 08:18 | Emergency (ER) | payer MEDICAID, SELFPAY ==
[2021-11-13 08:19] VITALS: BP 185/84; PULSE 75; RESP 17; TEMP 35.9; O2SAT 99; BMI 50.0
--- NOTE | 2021-11-13 08:48 | ED.VIS.LOWEX ---
HPI History of Present Illness HPI Narrative: Patient presents with left foot and arch pain that she has had since Tuesday, 4 days ago. She denies any injury. It is worse with standing. Sometimes it sharp and stabbing, otherwise dull and achy. She has been taking ibuprofen without relief. Pain is sometimes in the heel with standing. 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 thanks Chief Complaint: Lower Extremity Injury [facility] Medical History (Updated 11/13/21 @ 09:38 by Jackson Fortune MD) Anxiety Chest pain Depression DVT (deep venous thrombosis) Gallstones Hidradenitis suppurativa Hypertension PCOS (polycystic ovarian syndrome) Home Medications amlodipine 10 mg tablet 10 mg PO DAILY 05/30/19 [History Last Taken Unknown] cholecalciferol (vitamin D3) 1,000 unit PO DAILY 02/16/21 [History Last Taken Unknown] loratadine [Claritin] 10 mg PO DAILY 02/16/21 [History Last Taken Unknown] oxycodone-acetaminophen [Percocet] 1 tab PO Q8H PRN 3 Days #10 tab 02/16/21 [Rx Last Taken Unknown] Allergy/AdvReac Type Severity Reaction Status Date / Time No Known Allergies Allergy Verified 11/13/21 08:18 Family History Father Diabetes Heart disease Hypertension Surgical History S/P appendectomy Status post section Tubal ligation status Social History Smoking Status: Current every day smoker tobacco type: cigarettes alcohol intake: never substance use type: does not use caffeine: Yes what type of physical activity do you participate in: walking seatbelt use: always do you feel safe at home: Yes additional social history: [employer] EXAM Physical Exam Const Vital Signs: 11/13/21 08:19 Temperature 96.6 F L Temperature Source Temporal Pulse Rate 75 Respiratory Rate 17 Blood Pressure 185/84 H Blood Pressure Mean 117 Pulse Ox 99 Oxygen Delivery Method Room Air MDM MDM MDM Narrative Medical decision making narrative: X-rays were obtained of the left foot which does show a small spur at the insertion of the Achilles tendon. I do feel that she may have more of an arch strain in combination with plantar fasciitis. Patient was concerned for blood clot in her foot. There is no evidence clinically of blood clot, no erythema, no noted swelling even of her calf or below. I do not feel that emergent ultrasound is indicated. Additionally, she has a negative Wells score. At this point in time, I feel she can be discharged safely home to follow-up with her primary care physician. She will continue [id number] ibuprofen, ice, and elevation of her foot. She was given a postoperative shoe to wear. She can also follow-up with a children's ministry director as needed. Return instructions to the emergency department were reviewed. Disposition is discharged home in stable condition. Radiography Diagnostic Testing: Clinical Impression(s) from Imaging Studies Foot X-Ray 11/13/21 09:10 IMPRESSION: Small spur at insertion of Achilles tendon. Electronically Signed: Horace Delgado MD at 9:54 EST , Discharge Plan Triage Chief Complaint: Lower Extremity Injury ED Provider: Jackson Fortune Dx/Rx/DC Orders Clinical Impression: Acute foot pain, Plantar fasciitis Instructions: ED Foot Sprain, ED Plantar Fasciitis Prescriptions: No Action amlodipine 10 mg tablet 10 mg PO DAILY RF: 0 loratadine [Claritin] 10 mg Tablet 10 mg PO DAILY RF: 0 cholecalciferol (vitamin D3) 25 mcg (1,000 unit) tablet 1,000 unit PO DAILY RF: 0 oxycodone-acetaminophen [Percocet] 5-325 mg tablet 1 tab PO Q8H PRN (Reason: pain) 3 Days Qty: 10 RF: 0 Primary Care Provider: Rikki Medina Referrals: Rikki Medina MD [Primary Care Provider] - Disposition Disposition: Home, Self Care
--- NOTE | 2021-11-13 09:10 | RAD_ITS ---
STUDY: X-RAY - LEFT FOOT CLINICAL: Female, 41 years old. Pain TECHNIQUE: 3 view(s) of the foot. COMPARISON: None. FINDINGS: There is an enthesophyte involving the posterior superior calcaneus at the site of insertion of the Achilles tendon. Normal visualized subtalar, talonavicular, calcaneocuboid, tarsal and tarsometatarsal articulations. Normal metatarsi. Normal metatarsophalangeal joint of the great toe. Normal tibial and fibular sesamoid bones. Normal interphalangeal joint of the great toe. Normal phalanges of the great toe. Normal second through fifth metatarsophalangeal joints. Normal interphalangeal joints and phalanges of the lesser toes. The soft tissue structures are unremarkable. RAD/Foot min 3 Views IMPRESSION: Small spur at insertion of Achilles tendon. Electronically Signed: Horace Delgado MD at 9:54 EST ,
== END 2021-11-13 10:18 | disposition home or self-care (01) ==
PROVIDERS: Emergency Provider Emergency Medicine; PCP Internal Medicine; Visit Provider Emergency Medicine
DX: M72.2 Plantar fascial fibromatosis (principal); I10 Essential (primary) hypertension; F17.210 Nicotine dependence, cigarettes, uncomplicated; Z79.899 Other long term (current) drug therapy
CPT/HCPCS: 73630; 99283

== ENCOUNTER → 2022-10-15 | Outpatient (CLI) | payer MEDICAID, SELFPAY ==
--- NOTE | 2022-10-15 13:59 | VDLE_ITS ---
Reason For Study: LLE PAIN Procedure LEFT This is a venous duplex using B-mode, color GSV is normal. flow and spectral Doppler. CFV is compressible, spontaneous, phasic, Exam performed in department. competent, and demonstrates normal A preliminary report was called and/or faxed augmentation. to Dr. Medina office @ [phone]. FV is compressible, spontaneous, phasic, competent and demonstrates normal augmentation. POP V is compressible, spontaneous, phasic, competent and demonstrates normal augmentation. T/P Trunk is compressible. PTV is compressible. LT PerV is compressible. VL/Venous Duplex US, Unilateral Interpretation Summary Deep veins of the left lower extremity are patent and compressible segmentally. There is no evidence of left lower extremity deep vein thrombosis. The left great saphenous vein cira ears patent and compressible segmentally. Ordering Physician: KIT SHERWOOD Referring Physician: Rikki Medina Performed By: Lisbeth Jones, EVELINE, RVT
== END | disposition home or self-care (01) ==
PROVIDERS: PCP Internal Medicine
DX: M79.605 Pain in left leg (principal); Z86.718 Personal history of other venous thrombosis and embolism
CPT/HCPCS: 93971

== ENCOUNTER 2023-06-22 14:52 | Emergency (ER) | payer BC, MEDICAID, SELFPAY ==
[2023-06-22 14:54] VITALS: BP 224/115; PULSE 108; RESP 18; TEMP 36.4; O2SAT 100; BMI 49.4
--- NOTE | 2023-06-22 15:58 | EX.ED.DYSGE1 ---
HPI History of Present Illness Chief Complaint: Dizziness Detail of Chief Complaint: Not feeling well. Informant: patient Onset/Context/Timing Onset: Days Timing: Continuous Current Severity: Mild Maximum Severity: Mild Narrative Narrative: 42-year-old female thinks she may be going through menopause. Patient has a history of anxiety, depression, hypertension, polycystic ovarian syndrome and hidradenitis suppurativa. States she has been having hot flashes. Has been itching. Monthly when she has her menstrual periods she has an outbreak of her at bedtime. She has had some palpitations. Denies chest pain. Denies any vomiting or diarrhea. No melena. No dysuria. Prior similar symptoms: Yes Recent Illness/Hospitalization: No PFSH [facility] Medical History (Updated 06/22/23 @ 17:[address] Jack Stroud MD) Anxiety Chest pain Depression DVT (deep venous thrombosis) Gallstones Hidradenitis suppurativa Hypertension PCOS (polycystic ovarian syndrome) Home Medications amlodipine 10 mg tablet 10 mg PO DAILY 05/30/19 [History Last Taken Unknown] cholecalciferol (vitamin D3) 25 mcg (1,000 unit) tablet 1,000 unit PO DAILY 02/16/21 [History Last Taken Unknown] loratadine 10 mg tablet (Claritin) 10 mg PO DAILY 02/16/21 [History Last Taken Unknown] oxycodone-acetaminophen 5 mg-325 mg tablet (Percocet) 1 tab PO Q8H PRN pain 3 days #10 tabs 02/16/21 [Rx Last Taken Unknown] ondansetron 4 mg disintegrating tablet 4 mg PO Q6H PRN nausea and vomiting #7 tabs 06/22/23 [Rx Last Taken Unknown] Allergy/AdvReac Type Severity Reaction Status Date / Time No Known Allergies Allergy Verified 06/22/23 14:54 Family History Father Diabetes Heart disease Hypertension Surgical History S/P appendectomy Status post section Tubal ligation status Social History Smoking Status: Current every day smoker tobacco type: cigarettes alcohol intake: never substance use type: does not use caffeine: Yes what type of physical activity do you participate in: walking seatbelt use: always do you feel safe at home: Yes additional social history: [employer] ROS ROS ED ROS Narrative Nausea. Lightheaded. Review of Systems ROS Unobtainable: Denies due to encephalopathy Constitutional Constitutional ED: Denies chills or fever(s) Eyes Eyes: Denies blurry vision ENT ENT ED: Denies ear pain Cardiovascular Cardiovascular: Denies chest pain Respiratory/Chest Respiratory/Chest: Denies cough or dyspnea Gastrointestinal Gastrointestinal: Reports nausea; Denies abdominal pain, constipation, diarrhea, melena or vomiting Genitourinary Genitourinary ED: Denies dysuria or hematuria Musculoskeletal Musculoskeletal: Denies arthralgias or back pain Integumentary Denies abscess Neurologic Neurologic: Denies headache(s) Psychiatric Psychiatric: Reports anxiety Endocrine Endocrinology: Denies cold intolerance Hematologic/Lymphatic Hematologic/Lymphatic: Reports none; Denies systems reviewed and no addt'l complaints, except as documented Allergic/Immunologic Allergic/Immunologic ED: Denies mouth swelling, tongue swelling or urticaria EXAM Physical Exam Narrative Exam Narrative: 42-year-old female vital signs stable except for blood pressure 224/115 which would be repeated. She has a history of hypertension and says she gets anxious when she is evaluated by physicians and her blood pressure goes up. Patient does not look septic toxic. No distress. HEENT exam unremarkable. Neck nontender. Lungs clear to auscultation bilaterally. Heart regular rhythm rate about 105 no murmur. Chest were nontender. Abdomen soft nontender. Moving all 4 extremities. 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 Normal dorsi plantarflexion. Nontender. No edema. Neurologically she is awake and alert with no focal motor deficits. NIH is 0. Answering questions and following commands. Const Vital Signs: 06/22/23 14:54 06/22/23 16:16 06/22/23 16:16 Temperature 97.6 F L Temperature Source Temporal Pulse Rate 108 H 78 Respiratory Rate 18 Blood Pressure 224/115 H 155/91 H Blood Pressure Mean 151 112 Pulse Ox 100 Oxygen Delivery Method Room Air Positive well nourished, well developed and obese; Negative for cachectic, contractures or unkempt General Appearance ED: well developed and NAD; Negative for unkempt, cachectic, contractures, cyanotic, diaphoretic or pallor Nutritional Appearance: obese; Negative for cachectic HEENT Reports moist mucous membranes; Denies dry mucous membranes Negative for trauma or tenderness Mouth ED: No dry mucous membranes Mouth: No dry mucous membranes Eyes PERRL and EOMs intact bilaterally General Eye ED: Negative for pale conjunctiva, scleral icterus or other Neck no lymphadenopathy, supple and no JVD General: Negative for tenderness Lymph Lymphatic: Negative for other Chest Wall inspection of chest normal and palpation of chest normal Chest: Negative for other Resp normal respiratory effort and clear to auscultation bilaterally Effort and Inspection: Negative for retractions Auscultation: Negative for rales, rhonchi or wheezes Cardio regular rhythm, S1 normal heart sound, S2 normal heart sound and no murmurs; Negative for regular rate Rate: tachycardic Rhythm: Negative for abnormal rhythm GI normal to inspection, nondistended, normoactive bowel sounds, non-tender, non-distended and no masses Inspection: Negative for abdominal distention Auscultation: normoactive bowel sounds Palpation: soft; Negative for tender or guarding Bladder / Kidney Exam: No other Back/Spine no CVA tenderness General Back: Negative for CVA tenderness Cervical Spine: Negative for cervical spine tenderness Thoracic Spine / Upper Back: Negative for thoracic spinal tenderness Lumbar Spine / Lower Back: Negative for lumbar spinal tenderness Extremity normal to inspection General Extremety ED: Negative for edema or tenderness General Extremity: Negative for edema Neuro oriented x3, CN's II-XII intact bilaterally and no sensory deficits noted Sensorium / Orientation: alert; Negative for orientation impaired, lethargic or stuporous Motor Exam: strength 5/5 throughout Psych mental status grossly normal Appearance: Negative for unkempt Attitude: No agitated Mood & Affect: Negative for depressed, anxious or tearful Skin No no rashes or lesions noted Skin Narrative: Hydradenitis suppurativa of her armpits and abdomen and groin. No abscesses. General Skin Exam: elasticity normal; Negative for jaundice or pallor Lesions: No lesion noted Rashes: rashes noted Trauma: Negative for abrasion Wounds: Negative for wounds noted MDM MDM MDM Narrative Medical decision making narrative: 42-year-old female with multiple complaints she may or may not have signs of early menopause. She is following with her OB about that next month. I explained that we would not do that work-up today in emergency department her exam is benign. We will do screening labs. I think some of this may be related to anxiety. She has acute on chronic hypertension also. Repeat exam repeat blood pressure is 155/91. Doing well at 5:07 PM. We discussed her lab results. She will be written for Zofran for nausea. She will follow-up with [facility] for further work-up of possible early menopause. History & Record Review Discussion w/independent historian: Patient and Family Lab Data Attestation: I reviewed the patient's lab results. Lab results narrative: CBC unremarkable white count 8.4 H&H 12.3 and 38.9. Platelets 299. Electrolytes unremarkable gap of 0 BUN and creatinine of 6 and 0.75. Glucose of 104. Labs: Laboratory Results - last 24 hr 06/22/23 16:10 WBC 8.4 RBC 4.51 Hgb 12.3 Hct 38.9 MCV 86.3 MCH 27.3 MCHC 31.6 L RDW Std Deviation 50.4 H RDW Coeff of Brigid 16.0 H Plt Count 299 MPV 9.5 Immature Gran % (Auto) 0.400 Neut % (Auto) 68.8 Lymph % (Auto) 21.7 Placer % (Auto) 7.2 Eos % (Auto) 1.3 Baso % (Auto) 0.6 Absolute Neuts (auto) 5.8 Absolute Lymphs (auto) 1.81 Nucleated RBC % 0 Sodium 140 Potassium 4.0 Chloride 111 H Carbon Dioxide 29.0 Anion Gap 0 L BUN 6 L Creatinine 0.75 Estim Creat Clear Calc 97.57 Est GFR (MDRD) Af Amer 108 Est GFR (MDRD) Non-Af 89 BUN/Creatinine Ratio 8.0 L Glucose 104 Calcium 9.1 Rhythm Strip Rhythm Strip: Sinus Rhythm Rate: 81 Ectopy: None EKG Initial EKG: Attestation: I personally reviewed and interpreted this EKG as follows: Interpretation: Sinus Rhythm and No Acute Injury Pattern Comments: Normal sinus rhythm rate 81 no acute signs of [place] or ischemia or dysrhythmia. Discharge Plan Triage Chief Complaint: Dizziness Other Complaint: Anxiety Nausea/Vomiting ED Provider: Jack Stroud Dx/Rx/DC Orders Clinical Impression: Anxiety, History of hypertension, Nausea and vomiting Instructions: ED Dizziness, Uncertain Cause, ED Vomiting (Adult) Prescriptions: New ondansetron 4 mg tablet,disintegrating 4 mg PO Q6H PRN (Reason: nausea and vomiting) Qty: 7 0RF No Action amlodipine 10 mg tablet 10 mg PO DAILY loratadine [Claritin] 10 mg Tablet 10 mg PO DAILY cholecalciferol (vitamin D3) 25 mcg (1,000 unit) tablet 1,000 unit PO DAILY oxycodone-acetaminophen [Percocet] 5-325 mg tablet 1 tab PO Q8H PRN (Reason: pain) 3 Days Qty: 10 0RF Primary Care Provider: Rikki Medina Referrals: Nancy Sheridan MD [Med Staff - Active Staff] - Keep Jazmine appointment Rikki Medina MD [Primary Care Provider] - Activity Restrictions/Additional Instructions: Follow-up with your [facility] appointment for further evaluation for possible menopause. Plenty of fluids and rest. Zofran as needed for nausea. Benadryl for itching. Your labs and exam are normal normal today. Disposition Disposition: Home, Self Care
[2023-06-22 16:16] VITALS: BP 155/91; PULSE 78
[2023-06-22 16:19] LABS: Absolute Lymphocyte Count 1.81 X10^3/uL (0.83-4.51); Absolute Neutrophil Count 5.8 X10^3/uL (2.0-7.7); Basophil# 0.05 X10^3/uL; Basophil% 0.6 % (0-1); Eosinophil# 0.11 X10^3/uL; Eosinophils% 1.3 % (0-5); Hematocrit 38.9 % (37-47); Hemoglobin 12.3 g/dL (12.0-15.0); Lymphocyte # 1.81 X10^3/ul (0.83-4.51); Lymphocyte % 21.7 % (19-41); Mean Corp Hgb Conc 31.6 g/dL (32-36); Mean Corpuscular Hgb 27.3 pg (27.0-32.0); Mean Corpuscular Volume 86.3 fL (81-99); Mean Platelet Vol. 9.5 fl (6.2-12.0); Monocyte% 7.2 % (0-10); NRBC Flagged by Analyzer 0 % (0-5); Neutrophil # 5.76 X10^3/uL (2.7-7.7); Neutrophil % 68.8 % (47-70); Platelet Count 299 K/mm3 (150-450); RBC Distribution Width SD 50.4 fl (35.1-43.9); Red Blood Count 4.51 M/mm3 (4.2-5.4); White Blood Count 8.4 K/mm3 (4.4-11.0)
--- NOTE | 2023-06-22 16:20 | EKG12_ITS ---
Test Reason : DIZZY Blood Pressure : / mmHG Vent. Rate : 081 BPM Atrial Rate : 081 BPM P-R Int : 136 ms QRS Dur : 088 ms QT Int : 374 ms P-R-T Axes : 039 001 009 degrees QTc Int : 434 ms Normal sinus rhythm Normal ECG Confirmed by RAULITO ARREDONDO, FERNIE ([id number]), graphic editor [employer] PATHAK ([id number]) on 06/28/2023 10:46:10 AM Referred By: CHARLA/ARIADNA Confirmed By:JUANITA CABEZAS MD
[2023-06-22] MEDS: Ondansetron 4 MG/2 ML Vial IV (16:24)
[2023-06-22 16:37] LABS: Anion Gap 0 (5-15); BUN 6 mg/dL (7-18); Calcium,Total 9.1 mg/dL (8.5-10.1); Chloride 111 mmol/L (98-107); Creatinine, Serum 0.75 mg/dL (0.55-1.02); EST Glomerular Filtration Rate 89 mL/min (>60); Est Glom Filt Rate - Afr Amer 108 mL/min (>60); Estimated Creatinine Clearance 97.57 ml/min; Glucose 104 mg/dL (74-106); Sodium Level 140 mmol/L (136-145)
== END 2023-06-22 17:25 | disposition home or self-care (01) ==
PROVIDERS: Emergency Provider Emergency Medicine; PCP Internal Medicine; Visit Provider Emergency Medicine
DX: F41.9 Anxiety disorder, unspecified (principal); R11.2 Nausea with vomiting, unspecified; F17.210 Nicotine dependence, cigarettes, uncomplicated; E66.9 Obesity, unspecified; Z86.718 Personal history of other venous thrombosis and embolism
CPT/HCPCS: 80048; 85025; 93005; 96374; 99284; A4216; J2405

== ENCOUNTER 2024-09-11 01:33 | Observation (INO) | payer BC, SELFPAY ==
[2024-09-11] VITALS (22 sets, daily range): BP systolic 117–202; BP diastolic 83–115; PULSE 74–151; RESP 16–23; TEMP 35.5–36.7; O2SAT 96–100; BMI 52.9; BMI 52.0
--- NOTE | 2024-09-11 01:40 | RAD_ITS ---
EXAM: XR CHEST, 1 VIEW CLINICAL INDICATION: chest pain TECHNIQUE: Frontal view of the chest. COMPARISON: Previous chest radiographs of 10/31/2018 and 06/22/18. FINDINGS: LUNGS AND PLEURAL SPACES: Bronchovascular markings in the lower lungs are mildly accentuated by overlying breast tissue, unchanged. No consolidation or edema. No pneumothorax. No effusion. Lungs are not hyperinflated. HEART: Unremarkable. Cardiac silhouette not enlarged. Normal pulmonary vasculature. MEDIASTINUM: Stable slight prominence of the superior mediastinum, consistent with mediastinal lipomatosis. BONES/JOINTS: Unremarkable. No acute fracture. SOFT TISSUES: Unremarkable. RAD/Chest 1 View (Portable) IMPRESSION: No significant interval change or acute process. Electronically Signed: Joe Murguia MD at 3:22 EST ,
--- NOTE | 2024-09-11 01:40 | EKG12_ITS ---
Test Reason : Blood Pressure : */* mmHG Vent. Rate : 137 BPM Atrial Rate : * BPM P-R Int : * ms QRS Dur : 88 ms QT Int : 306 ms P-R-T Axes : * 10 61 degrees QTcB Int : 462 ms Atrial fibrillation with rapid ventricular response ST depression, consider subendocardial injury Abnormal ECG Confirmed by VIV ARREDONDO, LITA ([id number]), editor greeting card [employer] PATHAK ([id number]) on 09/11/2024 8:19:44 AM Referred By: Confirmed By: LITA NAM MD
[2024-09-11 01:48] LABS: Absolute Lymphocyte Count 5.92 X10^3/uL (0.83-4.51); Absolute Neutrophil Count 5.5 X10^3/uL (2.0-7.7); Basophil# 0.09 X10^3/uL; Basophil% 0.7 % (0-1); Eosinophil# 0.42 X10^3/uL; Eosinophils% 3.2 % (0-5); Hematocrit 40.8 % (37-47); Hemoglobin 13.1 g/dL (12.0-15.0); Lymphocyte # 5.92 X10^3/ul (0.83-4.51); Lymphocyte % 45.5 % (19-41); Mean Corp Hgb Conc 32.1 g/dL (32-36); Mean Corpuscular Hgb 27.8 pg (27.0-32.0); Mean Corpuscular Volume 86.6 fL (81-99); Mean Platelet Vol. 9.8 fl (6.2-12.0); Monocyte# 1.09 X10^3/uL; Monocyte% 8.4 % (0-10); NRBC Flagged by Analyzer 0 % (0-5); Neutrophil # 5.45 X10^3/uL (2.7-7.7); Neutrophil % 41.8 % (47-70); POSITIVE DIFFERENTIAL YES; POSITIVE MORPHOLOGY YES; Platelet Count 322 K/mm3 (150-450); RBC Distribution Width CV 16.2 % (11.6-14.6); RBC Distribution Width SD 50.8 fl (35.1-43.9); Red Blood Count 4.71 M/mm3 (4.2-5.4)
--- NOTE | 2024-09-11 01:50 | ED.VIS.CHEST ---
HPI History of Present Illness Chief Complaint: Palpitations Informant: patient Onset/Context/Timing Onset: Today and Hours Activity at onset: sudden Timing: Continuous Associated Symptoms: Positive for Palpitations; Negative for Nausea, Vomiting, Diaphoresis, Cough, Fever, Lightheadedness or Acid Reflux Narrative Narrative: 44-year-old female history of hypertension, PCOS and DVT with history of palpitations but no specific prior diagnosis of abnormal heart rhythm. Presents due to palpitations decelerate heart rate today. Denies chest pain. Denies any syncope. No other complaints. Prior Similar Symptoms: Yes Recent Illness/Hospitalization: No CVD Risk Factors: Positive for Hypertension PE Risk Factors: Positive for Prior DVT or PE; Negative for Recent Travel/Surgery, Recent Immobilization or Cancer TAD Risk Factors: Negative for Marfan's Syndrome PFSH [facility] Medical History Tibialis posterior tendinitis Right ankle pain DVT (deep vein thrombosis) in Hidradenitis suppurativa PCOS (polycystic ovarian syndrome) DVT (deep venous thrombosis) Anxiety Depression Gallstones Chest pain Hypertension Home Medications ?Medication ?Instructions ?Recorded ?Last Taken ?Type cholecalciferol (vitamin D3) 25 1,000 unit PO DAILY 02/16/21 Unknown History mcg (1,000 unit) tablet oxycodone-acetaminophen 5 mg-325 1 tab PO Q8H PRN pain 3 days #10 02/16/21 Unknown Rx mg tablet (Percocet) tabs cetirizine 10 mg tablet 10 mg PO QDAY 07/27/24 Unknown History losartan 50 mg tablet 50 mg PO QDAY 07/27/24 Unknown History spironolactone 50 mg tablet 50 mg PO QDAY 07/27/24 Unknown History doxycycline hyclate 100 mg tablet 100 mg PO BID 09/11/24 Unknown History Allergy/AdvReac Type Severity Reaction Status Date / Time No Known Allergies Allergy Verified 09/11/24 01:34 Family History Father Diabetes Heart disease Hypertension Surgical History Tubal ligation status Status post section S/P appendectomy Social History Smoking Status: Current every day smoker tobacco type: cigarettes alcohol intake: never substance use type: does not use caffeine: Yes what type of physical activity do you participate in: walking seatbelt use: always do you feel safe at home: Yes additional social history: [employer] ROS ROS ED ROS Narrative Palpitations. Denies recent illness. Constitutional Constitutional ED: Denies chills or fever(s) Eyes Eyes: Reports none ENT ENT ED: Denies ear pain Cardiovascular Cardiovascular: Reports as per HPI, palpitations and racing heartbeat; Denies chest pain Respiratory/Chest Respiratory/Chest: Denies cough or dyspnea Gastrointestinal Gastrointestinal: Denies abdominal pain Genitourinary Genitourinary ED: Denies dysuria Musculoskeletal Musculoskeletal: Denies arthralgias Integumentary Denies abscess Psychiatric Psychiatric: Denies anxiety or depression Endocrine Endocrinology: Denies cold intolerance Hematologic/Lymphatic Hematologic/Lymphatic: Denies easy bleeding, easy bruising or lymphadenopathy Allergic/Immunologic Allergic/Immunologic ED: Denies mouth swelling, tongue swelling or urticaria EXAM Physical Exam Narrative Exam Narrative: 44-year-old female with tachycardia. Vital signs are stable and her heart rate of 133 with A-fib RVR on the monitor. She is awake alert. Sitting upright in bed. Tolerating well. H EENT exam unremarkable. Moist mucous membranes. Neck nontender no JVD. Lungs clear to auscultation bilaterally. Heart A-fib RVR rate about 133. Chest wall ribs nontender. Abdomen soft nontender. Moving all 4 extremities. 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 Dorsi plantarflexion intact. Nontender no edema. No cords. Neurologically she is awake alert no focal motor deficits. Const Vital Signs: 09/11/24 01:35 09/11/24 01:38 09/11/24 01:44 Temperature 97.6 F L Temperature Source Oral Pulse Rate 133 H Respiratory Rate 23 H Respiratory Effort Normal Non-Labored Blood Pressure 202/111 H Blood Pressure Mean 141 Pulse Ox 100 Oxygen Delivery Method Room Air Room Air 09/11/24 02:05 Temperature Temperature Source Pulse Rate 115 H Respiratory Rate Respiratory Effort Blood Pressure 145/115 H Blood Pressure Mean 125 Pulse Ox Oxygen Delivery Method Positive well nourished and well developed; Negative for cachectic, contractures or unkempt General Appearance ED: well developed; Negative for unkempt, cachectic, contractures or pallor Nutritional Appearance: Negative for cachectic HEENT Reports moist mucous membranes normocephalic and atraumatic Eyes PERRL and EOMs intact bilaterally General Eye ED: Negative for pale conjunctiva Neck no lymphadenopathy, supple and no JVD General: Negative for tenderness Chest Wall inspection of chest normal and palpation of chest normal Resp normal respiratory effort and clear to auscultation bilaterally Effort and Inspection: Negative for respiratory distress Auscultation: Negative for rales, rhonchi, wheezes or diminished lung sounds Cardio regular rhythm, S1 normal heart sound, S2 normal heart sound and no murmurs; Negative for regular rate Rate: tachycardic and other Other Details: A-fib RVR rate of 133. GI normal to inspection, nondistended, normoactive bowel sounds, soft to palpation, non-tender, non-distended and no masses Back/Spine no CVA tenderness and no thoracic nor lumbar tenderness Extremity normal to inspection General Extremety ED: Negative for edema General Extremity: Negative for edema Neuro oriented x3 and CN's II-XII intact bilaterally Sensorium / Orientation: awake, alert, oriented to person, oriented to place and oriented to time; Negative for confused, lethargic or stuporous Psych mental status grossly normal Appearance: Negative for unkempt Attitude: No agitated Mood & Affect: Negative for depressed, anxious or tearful Skin no rashes or lesions noted and no wounds General Skin Exam: Negative for jaundice or pallor Rashes: No rashes noted Trauma: Negative for abrasion or laceration MDM MDM MDM Narrative Medical decision making narrative: 43-year-old female new onset A-fib RVR. Given IV Cardizem and a cardiac workup. Repeat exam at 2:30 AM patient sitting upright in bed comfortable but heart rates 145 after IV Cardizem. She will be started on a Cardizem drip. I will speak to the overnight hospitalist for admission to the PCU. History & Record Review Discussion w/independent historian: Patient Additional record(s) reviewed:: Prior inpatient record, Prior outpatient record, Prior ED visit and Prior labs Lab Data Attestation: I reviewed the patient's lab results. Lab results narrative: CBC shows a white count 13. H&H 13.1 and 40. Platelets 322. PT/INR of 13 and 1. PTT of 24. Electrolytes show potassium 3.2. Gap 5. Normal BUN 10 creatinine 0.83. Glucose 129. Troponin 5. TSH is normal at 3.0. Chest x-ray chronic changes. Labs: Laboratory Results - last 24 hr 09/11/24 01:41 WBC 13.0 H RBC 4.71 Hgb 13.1 Hct 40.8 MCV 86.6 MCH 27.8 MCHC 32.1 RDW Std Deviation 50.8 H RDW Coeff of Brigid 16.2 H Plt Count 322 MPV 9.8 Immature Gran % (Auto) 0.400 Neut % (Auto) 41.8 L Lymph % (Auto) 45.5 H [place] % (Auto) 8.4 Eos % (Auto) 3.2 Baso % (Auto) 0.7 Absolute Neuts (auto) 5.5 Absolute Lymphs (auto) 5.92 H Nucleated RBC % 0 PT 13.4 INR 1.0 APTT 24.3 Sodium 139 Potassium 3.2 L Chloride 108 H Carbon Dioxide 27.0 Anion Gap 5 BUN 10 Creatinine 0.83 Estim Creat Clear Calc 137.20 Est GFR (MDRD) Af Amer 95 Est GFR (MDRD) Non-Af 79 BUN/Creatinine Ratio 12.0 Glucose 129 H Calcium 9.2 Troponin I High Sens 5 TSH 3.020 Radiography Chest X-Ray - ED: 1 View, Read by ED Physician, Lungs, Mediastinum, Bony Structures and No Acute Disease Diagnostic Testing: Chest x-ray, portable, single view shows normal cardiac silhouette mediastinum. Normal lung fernandez. Interpreted by myself. Rhythm Strip Rhythm Strip: A-fib Rate: 137 Ectopy: None EKG Initial EKG: Attestation: I personally reviewed and interpreted this EKG as follows: Interpretation: No Acute Injury Pattern and Atrial Fibrillation Comments: A-fib RVR with a rate of 137. ST depression leads V2 through V6 suspect secondary to rate dependent ischemia. Critical Care Time Critical Care Time: Yes Critical care time (excluding procedures): 30-74 minutes, Including time spent:, Discussing w/Patient &/or Family/Tacking Stitch Remover, Discussing w/Consultants, Arranging Admission or Transfer, Performing Direct Patient Care at Bedside and - (33 minutes) Discharge Plan Dx/Rx/DC Orders Clinical Impression: Atrial fibrillation with rapid ventricular response, Acute hypokalemia, History of hypertension Disposition Disposition: [facility]
[2024-09-11 01:59] LABS: Partial Thromboplast Time 24.3 Seconds (24.1-36.2); Prothrombin Time (Protime)PT. 13.4 SECONDS (11.7-14.9)
[2024-09-11] MEDS: dilTIAZem 25 MG/5 ML Vial IV BOLUS (02:04)
[2024-09-11 02:15] LABS: Anion Gap 5 (5-15); BUN 10 mg/dL (7-18); Calcium,Total 9.2 mg/dL (8.5-10.1); Chloride 108 mmol/L (98-107); Creatinine, Serum 0.83 mg/dL (0.55-1.02); EST Glomerular Filtration Rate 79 mL/min (>60); Est Glom Filt Rate - Afr Amer 95 mL/min (>60); Glucose 129 mg/dL (74-106); Potassium 3.2 mmol/L (3.5-5.1); Sodium Level 139 mmol/L (136-145); Troponin-I HS 5 pg/mL (3.0-54.0)
[2024-09-11 02:22] LABS: Differential Indicated SCAN CRITERIA MET
[2024-09-11 02:39] LABS: Differential Comment SCANNED
[2024-09-11] MEDS: Diltiazem 125 MG in Dextrose 5%-Water (100mL Bag) 100 ML IV (02:48)
--- NOTE | 2024-09-11 03:16 | HP.PCM_ITS ---
HPI - General General Date of Admission: 09/11/24 Date of Service: 09/11/24 Chief Complaint: Palpitations HPI Narrative ELY BAH, is a 44 F who presents to the emergency room with chief complaint of palpitations. Onset of symptoms began earlier today patient states she has had similar presentations around the time of her period which she just started earlier today as well. On EKG patient was diagnosed with atrial fibrillation with rapid ventricular response currently on a rate of 150 bpm. Patient states she feels anxious and slightly winded but denies chest pain and/or fevers or chills at this time. States her mom has a history of atrial fibrillation as well. Patient has not previously been diagnosed or treated for obstructive sleep apnea. Initial laboratory studies are unremarkable. Patient was started on Cardizem drip and admission was requested. [facility] Medical History Tibialis posterior tendinitis Right ankle pain DVT (deep vein thrombosis) in Hidradenitis suppurativa PCOS (polycystic ovarian syndrome) DVT (deep venous thrombosis) Anxiety Depression Gallstones Chest pain Hypertension Home Medications ?Medication ?Instructions ?Recorded ?Last Taken ?Type cholecalciferol (vitamin D3) 25 1,000 unit PO DAILY 02/16/21 Unknown History mcg (1,000 unit) tablet oxycodone-acetaminophen 5 mg-325 1 tab PO Q8H PRN pain 3 days #10 02/16/21 Unknown Rx mg tablet (Percocet) tabs cetirizine 10 mg tablet 10 mg PO QDAY 07/27/24 Unknown History losartan 50 mg tablet 50 mg PO QDAY 07/27/24 Unknown History spironolactone 50 mg tablet 50 mg PO QDAY 07/27/24 Unknown History doxycycline hyclate 100 mg tablet 100 mg PO BID 09/11/24 Unknown History Allergy/AdvReac Type Severity Reaction Status Date / Time No Known Allergies Allergy Verified 09/11/24 01:34 Family History Father Diabetes Heart disease Hypertension Surgical History Tubal ligation status Status post section S/P appendectomy Social History Smoking Status: Current every day smoker tobacco type: cigarettes alcohol intake: never substance use type: does not use caffeine: Yes what type of physical activity do you participate in: walking seatbelt use: always do you feel safe at home: Yes additional social history: [employer] ROS Constitutional Constitutional: Denies chills or fever(s) Eyes Eyes: Denies blurry vision ENT HEENT: Denies abnormal hearing Cardiovascular Cardiovascular: Reports palpitations; Denies chest pain Respiratory/Chest Respiratory/Chest: Denies cough or wheezing Gastrointestinal Gastrointestinal: Denies abdominal pain Genitourinary Genitourinary: Denies dysuria Musculoskeletal Musculoskeletal: Denies extremity pain Integumentary Integumentary: Denies dry skin Neurologic Neurologic: Denies abnormal speech Psychiatric Psychiatric: Reports anxiety Vital Signs Vital Signs Vital Signs: 09/11/24 01:35 09/11/24 01:38 09/11/24 01:44 Temperature 97.6 F L Temperature Source Oral Pulse Rate 133 H Respiratory Rate 23 H Respiratory Effort Normal Non-Labored Blood Pressure 202/111 H Blood Pressure Mean 141 Blood Pressure Position Blood Pressure Location Pulse Ox 100 Oxygen Delivery Method Room Air Room Air 09/11/24 02:05 09/11/24 02:48 Temperature Temperature Source Pulse Rate 115 H 148 H Respiratory Rate 18 Respiratory Effort Blood Pressure 145/115 H 129/112 H Blood Pressure Mean 125 117 Blood Pressure Position Sitting Blood Pressure Location Right Forearm Pulse Ox 97 Oxygen Delivery Method Room Air Weight Weight: 348 lb 5.286 oz Body Mass Index (BMI) 52.9 Physical Exam Const oriented x3 General Appearance: cooperative and well developed HEENT normocephalic and head/scalp atraumatic Eyes PERRL Neck no lymphadenopathy Lymph Lymphatic: no lymphadenopathy noted Resp normal respiratory effort, normal air movement and clear to auscultation bilaterally Cardio S1 normal heart sound, S2 normal heart sound, no murmurs, no rub and no gallops Rate: tachycardic Rhythm: abnormal rhythm irregularly irregular GI normal to inspection, nondistended, normoactive bowel sounds GI Narrative: obese Extremity normal capillary refill Skin General Skin Exam: no breakdown Neuro no focal motor deficits and no sensory deficits noted Psych cooperative and affect normal Mood & Affect: anxious Results Lab / Micro Data 09/11/24 01:41 09/11/24 01:41 Labs: Laboratory Results - last 24 hr 09/11/24 01:41: WBC 13.0 H, RBC 4.71, Hgb 13.1, Hct 40.8, MCV 86.6, MCH 27.8, MCHC 32.1, RDW Std Deviation 50.8 H, RDW Coeff of Brigid 16.2 H, Plt Count 322, MPV 9.8, Immature Gran % (Auto) 0.400, Neut % (Auto) 41.8 L, Lymph % (Auto) 45.5 H, [place] % (Auto) 8.4, Eos % (Auto) 3.2, Baso % (Auto) 0.7, Absolute Neuts (auto) 5.5, Absolute Lymphs (auto) 5.92 H, Nucleated RBC % 0, Differential Comment SCANNED, PT 13.4, INR 1.0, APTT 24.3, Sodium 139, Potassium 3.2 L, Chloride 108 H, Carbon Dioxide 27.0, Anion Gap 5, BUN 10, Creatinine 0.83, Estim Creat Clear Calc 137.20, Est GFR (MDRD) Af Amer 95, Est GFR (MDRD) Non-Af 79, BUN/Creatinine Ratio 12.0, Glucose 129 H, Calcium 9.2, Troponin I High Sens 5, TSH 3.020 Rhythm Strip Rhythm Strip: A-fib Rate: 137 Ectopy: None Assessment & Plan Assessment/Plan (1) History of hypertension: (2) Acute hypokalemia: (3) Atrial fibrillation with rapid ventricular response: (4) Anxiety: PLAN: Plan 1 new onset atrial fibrillation with rapid ventricular response?admit patient to progressive care unit, can continue Cardizem drip, initiate Eliquis therapy for anticoagulation, consult cardiology. Repeat CBC BMP in the morning. 2. Acute hypokalemia?replace potassium 3. Anxiety?continue routine home medications as needed 4. DVT prophylaxis?patient will be anticoagulated on Eliquis Charges/Coding Visit Charges Inpatient E&M: 14144 Init Hosp L2
[2024-09-11 07:14] LABS: Absolute Lymphocyte Count 2.08 X10^3/uL (0.83-4.51); Absolute Neutrophil Count 6.4 X10^3/uL (2.0-7.7); Basophil# 0.09 X10^3/uL; Eosinophils% 1.1 % (0-5); Hematocrit 41.4 % (37-47); Hemoglobin 13.4 g/dL (12.0-15.0); Lymphocyte # 2.08 X10^3/ul (0.83-4.51); Lymphocyte % 22.4 % (19-41); Mean Corp Hgb Conc 32.4 g/dL (32-36); Mean Corpuscular Volume 86.6 fL (81-99); Mean Platelet Vol. 9.7 fl (6.2-12.0); Monocyte# 0.56 X10^3/uL; NRBC Flagged by Analyzer 0 % (0-5); Neutrophil # 6.41 X10^3/uL (2.7-7.7); Neutrophil % 68.9 % (47-70); Platelet Count 323 K/mm3 (150-450); RBC Distribution Width CV 16.2 % (11.6-14.6); RBC Distribution Width SD 51.3 fl (35.1-43.9); Red Blood Count 4.78 M/mm3 (4.2-5.4); White Blood Count 9.3 K/mm3 (4.4-11.0)
--- NOTE | 2024-09-11 07:28 | ECHOCS_ITS ---
Reason For Study: ATRIAL FIBRILLATION Procedure This was a 2D Doppler, Color Flow transthoracic echocardiogram. The study was technically difficult. Contrast injection was performed. The patient was scanned supine. Exam performed portable in patient room. Left Ventricle Normal LV size. Left ventricular systolic function is normal. The left ventricular ejection fraction is 60 %. No regional wall motion abnormalities noted. Right Ventricle Normal RV size. Normal systolic function. Atria Normal left atrium. Normal right atrium. Mitral Valve Normal mitral valve. Tricuspid Valve Normal tricuspid valve. Aortic Valve The aortic valve is not well visualized. Pulmonic Valve The pulmonic valve is not well visualized. Great Vessels Normal aortic root. The pulmonary artery is normal size. Normal inferior vena cava. Pericardium/Pleural No pericardial effusion. Medication Diluted definity 2.5ml given slow IV push to enhance endocardial definition. MMode/2D Measurements & Calculations LVIDd: 3.8 cm IVSd: 1.4 cm LVOT diam: 2.1 cm LVIDs: 2.0 cm LVPWd: 1.1 cm RVDd: 4.1 cm FS: 47.6 % LVOT area: 3.5 cm2 Ao root diam: 3.2 cm LAV(MOD-bp): 34.4 ml LVAd ap4: 19.5 cm2 LAV(MOD-bp) Indexed: 13.4 ml/m2 LVLd ap4: 6.9 cm LAV(MOD-sp2): 36.5 ml EDV(MOD-sp4): 44.1 ml LAV(MOD-sp4): 31.4 ml EDV(sp4-el): 47.1 ml LVAs ap4: 11.6 cm2 LVLs ap4: 6.5 cm ESV(MOD-sp4): 17.1 ml ESV(sp4-el): 17.7 ml EF(MOD-sp4): 61.3 % EF(sp4-el): 62.5 % LVAd ap2: 28.8 cm2 SV(MOD-sp4): 27.1 ml SV(MOD-sp2): 48.8 ml LVLd ap2: 8.5 cm SI(MOD-sp4): 10.5 ml/m2 SI(MOD-sp2): 19.0 ml/m2 EDV(MOD-sp2): 78.6 ml EDV(sp2-el): 83.1 ml LVAs ap2: 16.0 cm2 LVLs ap2: 6.9 cm ESV(MOD-sp2): 29.7 ml ESV(sp2-el): 31.4 ml EF(MOD-sp2): 62.2 % SV(sp4-el): 29.4 ml Ao sinus diam: 3.[address] Junction: 2.6 cm LA dimension(2D): 3.0 cm LA A4 area: 14.4 cm2 RA A4 area: 12.4 cm2 Time Measurements MV dec time: 0.16 sec Doppler Measurements & Calculations MV E max rudolph: 78.3 cm/sec Lat Peak E' Rudolph: 22.3 cm/sec Med Peak E' Rudolph: 15.1 cm/sec E/E' lat: 3.5 E/E' med: 5.2 Ao V2 max: 115.6 cm/sec LV V1 max: 99.5 cm/sec SV(LVOT): 49.9 ml Ao max P.4 mmHg LV V1 max P.1 mmHg Ao V2 mean: 83.9 cm/sec LV V1 mean P.6 mmHg Ao mean P.1 mmHg LV V1 mean: 76.6 cm/sec Ao V2 VTI: 18.3 cm LV V1 VTI: 14.3 cm AV (velocity ratio): 0.78 CARLY(I,D): 2.7 cm2 CARLY(V,D): 3.0 cm2 PA V2 max: 109.0 cm/sec TR max rudolph: 130.7 cm/sec TR max P.8 mmHg ECHO/Echo Complete W/ Contrast Interpretation Summary Normal LV size. Left ventricular systolic function is normal. The left ventricular ejection fraction is 60 %. Contrast injection was performed. Ordering Physician: Gilberto Kelly Referring Physician: Rikki Medina M.D. Performed By: Kami Oglesby RDCS and Student
[2024-09-11] MEDS: Acetaminophen 325 MG Tablet 650 MG PO (07:29)
[2024-09-11] MEDS: Spironolactone 50 MG Tablet PO (07:30)
[2024-09-11] MEDS: Loratadine 10 MG Tablet PO (07:30)
[2024-09-11] MEDS: Losartan Potassium 50 MG Tablet PO (07:30)
[2024-09-11] MEDS: Doxycycline 100 MG CAPSULE PO ×2 (07:40→21:55)
[2024-09-11] MEDS: Cholecalciferol (VIT D3) 25 MCG TABLET (1,000 UNITS) PO (07:40)
[2024-09-11] MEDS: APIXABAN 5 MG TABLET PO ×2 (07:40→21:55)
[2024-09-11 07:44] LABS: Anion Gap 3 (5-15); BUN 8 mg/dL (7-18); BUN/Creat Ratio 12.6 RATIO (10-20); Calcium,Total 9.4 mg/dL (8.5-10.1); Chloride 112 mmol/L (98-107); Creatinine, Serum 0.64 mg/dL (0.55-1.02); EST Glomerular Filtration Rate 108 mL/min (>60); Est Glom Filt Rate - Afr Amer 130 mL/min (>60); Estimated Creatinine Clearance 176.04 ml/min; Glucose 135 mg/dL (74-106); Potassium 4.1 mmol/L (3.5-5.1); Sodium Level 140 mmol/L (136-145)
[2024-09-11 07:52] LABS: Magnesium 2.1 mg/dL (1.6-2.6)
--- NOTE | 2024-09-11 07:56 | CON.PCM.CA_ITS ---
Assessment & Plan Assessment/Plan (1) Atrial fibrillation with rapid ventricular response: PLAN: She does present with atrial fibrillation with a rapid ventricular response rate and a chads Vascor of 2. My recommendation at this time will be to obtain an echocardiogram to assess her ventricular function, put her on anticoagulation for now with Eliquis and beta-carlos alberto for rate control. I have asked that she be screened for obstructive sleep apnea and if she does not convert within the next few weeks we can consider DC cardioversion. It may probably be ideal for her to lose some weight before we consider an A-fib ablation. (2) History of hypertension: PLAN: She will continue on her current dose of losartan with the addition of metoprolol 50 mg twice a day. HPI Consult Data Date of Consult: 09/11/24 HPI Narrative HPI Narrative: ELY BAH, is a 44 F who presents to the emergency room with palpitations. She she says that she has had this in the past but has usually lasted a short period of time. Yesterday she was watching TV and then started developing palpitations. She presented to the emergency room was evaluated and was noted to be in atrial fibrillation with rapid ventricular response rate. She was started on intravenous diltiazem and heparin and admitted to the telemetry care unit. Cardiology was called for further evaluation and management. She denies any dizziness or diaphoresis near syncope or syncope. At this particular time she appears to be free of any symptoms. [facility] Medical History Tibialis posterior tendinitis Right ankle pain DVT (deep vein thrombosis) in Hidradenitis suppurativa PCOS (polycystic ovarian syndrome) DVT (deep venous thrombosis) Anxiety Depression Gallstones Chest pain Hypertension Home Medications ?Medication ?Instructions ?Recorded ?Last Taken ?Type cholecalciferol (vitamin D3) 25 1,000 unit PO DAILY 02/16/21 Unknown History mcg (1,000 unit) tablet cetirizine 10 mg tablet 10 mg PO QDAY 07/27/24 Unknown History losartan 50 mg tablet 50 mg PO QDAY 07/27/24 Unknown History spironolactone 50 mg tablet 50 mg PO QDAY 07/27/24 Unknown History doxycycline hyclate 100 mg tablet 100 mg PO BID 09/11/24 Unknown History ibuprofen 800 mg tablet 800 mg PO Q8H PRN pain 09/11/24 Unknown History lorazepam 0.5 mg tablet (Ativan) 0.5 mg PO DAILY PRN PRN anxiety 09/11/24 Unknown History Allergy/AdvReac Type Severity Reaction Status Date / Time No Known Allergies Allergy Verified 09/11/24 01:34 Family History Father Diabetes Heart disease Hypertension Surgical History Tubal ligation status Status post section S/P appendectomy Social History household members: spouse and family number of children: 3 pets and animals: Yes (dog) Smoking Status: Current every day smoker tobacco type: cigarettes alcohol intake: never substance use type: does not use caffeine: Yes what type of physical activity do you participate in: walking seatbelt use: always do you feel safe at home: Yes additional social history: [employer] ROS Constitutional Constitutional: Denies fever(s) or weight loss Eyes Eyes: Reports systems reviewed and no addt'l complaints, except as documented ENT HEENT: Reports systems reviewed and no addt'l complaints, except as documented Cardiovascular Cardiovascular: Reports palpitations; Denies chest pain at rest, chest pain with activity, dyspnea at rest, dyspnea on exertion, edema or paroxysmal nocturnal dyspnea Respiratory/Chest Respiratory/Chest: Reports shortness of breath at rest; Denies dyspnea on exertion, productive cough or shortness of breath with exertion Gastrointestinal Gastrointestinal: Denies change in bowel habits, nausea, vomiting or weight changes Genitourinary Genitourinary: Denies difficulty urinating Musculoskeletal Musculoskeletal: Denies joint stiffness or muscle weakness Integumentary Integumentary: Denies lesions Neurologic Neurologic: Denies dizziness or syncope Psychiatric Psychiatric: Denies anxiety Endocrine Endocrinology: Denies excessive sweating or fatigue Hematologic/Lymphatic Hematologic/Lymphatic: Denies anemia Allergic/Immunologic Allergic/Immunologic: Denies seasonal rhinorrhea Physical Exam Const alert, oriented x3 and no apparent distress General Appearance: cooperative HEENT hearing grossly normal bilaterally Head and Scalp: atraumatic Eyes EOMs intact bilaterally Neck General: normal visual inspection Chest inspection of chest normal and palpation of chest normal Resp normal respiratory effort Auscultation: clear to auscultation bilaterally Cardio S1 normal heart sound and S2 normal heart sound Jugular Venous Distention: JVD Rhythm: abnormal rhythm irregularly irregular GI normal to inspection, nondistended, normoactive bowel sounds Extremity normal capillary refill and no pedal edema Peripheral Pulses: Yes pulses 2+ throughout and femoral pulses present Skin no rashes or lesions noted Neuro oriented x3 and CN's II-XII intact bilaterally Psych Appearance: grossly normal and appropriate Risk Stratification Risk Stratification Applicable: No Objective Data Vital Signs: Vital Signs Temp Pulse Resp BP Pulse Ox O2 Del Method 97.1 F L 120 H 17 140/93 H 97 Room Air 09/11/24 04:30 09/11/24 06:28 09/11/24 05:00 09/11/24 06:28 09/11/24 07:45 09/11/24 07:46 Oxygen Delivery Method Room Air Weight: 342 lb 6.046 oz Body Mass Index (BMI) 52.0 Intake & Output: Intake and Output for Last 24 Hours 09/09/24 09/10/24 09/11/24 23:59 23:59 23:59 Intake Total 362.00 / 362.00 Balance 362.00 / 362.00 Lab / Micro Data 09/11/24 06:52 09/11/24 06:52 Labs: Laboratory Results - last 24 hr 09/11/24 01:41: WBC 13.0 H, RBC 4.71, Hgb 13.1, Hct 40.8, MCV 86.6, MCH 27.8, MCHC 32.1, RDW Std Deviation 50.8 H, RDW Coeff of Brigid 16.2 H, Plt Count 322, MPV 9.8, Immature Gran % (Auto) 0.400, Neut % (Auto) 41.8 L, Lymph % (Auto) 45.5 H, Pickett % (Auto) 8.4, Eos % (Auto) 3.2, Baso % (Auto) 0.7, Absolute Neuts (auto) 5.5, Absolute Lymphs (auto) 5.92 H, Nucleated RBC % 0, Differential Comment SCANNED, PT 13.4, INR 1.0, APTT 24.3, Sodium 139, Potassium 3.2 L, Chloride 108 H, Carbon Dioxide 27.0, Anion Gap 5, BUN 10, Creatinine 0.83, Estim Creat Clear Calc 137.20, Est GFR (MDRD) Af Amer 95, Est GFR (MDRD) Non-Af 79, BUN/Creatinine Ratio 12.0, Glucose 129 H, Calcium 9.2, Troponin I High Sens 5, TSH 3.020 09/11/24 06:52: WBC 9.3, RBC 4.78, Hgb 13.4, Hct 41.4, MCV 86.6, MCH 28.0, MCHC 32.4, RDW Std Deviation 51.3 H, RDW Coeff of Brigid 16.2 H, Plt Count 323, MPV 9.7, Immature Gran % (Auto) 0.600, Neut % (Auto) 68.9, Lymph % (Auto) 22.4, Pickett % (Auto) 6.0, Eos % (Auto) 1.1, Baso % (Auto) 1.0, Absolute Neuts (auto) 6.4, Absolute Lymphs (auto) 2.08, Nucleated RBC % 0, Sodium 140, Potassium 4.1, C hloride 112 H, Carbon Dioxide 25.0, Anion Gap 3 L, BUN 8, Creatinine 0.64, Estim Creat Clear Calc 176.04, Est GFR (MDRD) Af Amer 130, Est GFR (MDRD) Non-Af 108, BUN/Creatinine Ratio 12.6, Glucose 135 H, Calcium 9.4, Magnesium 2.1 Rhythm Strip Rhythm Strip: A-fib Rate: 137 Ectopy: None Cardiology Labs/Tests 09/11/24 01:41: WBC 13.0 H, RBC 4.71, Hgb 13.1, Hct 40.8, MCV 86.6, MCH 27.8, MCHC 32.1, Plt Count 322, MPV 9.8, Immature Gran % (Auto) 0.400, Neut % (Auto) 41.8 L, Lymph % (Auto) 45.5 H, Pickett % (Auto) 8.4, Eos % (Auto) 3.2, Baso % (Auto) 0.7, Absolute Neuts (auto) 5.5, Nucleated RBC % 0, PT 13.4, INR 1.0, APTT 24.3, Sodium 139, Potassium 3.2 L, Chloride 108 H, Carbon Dioxide 27.0, Anion Gap 5, BUN 10, Creatinine 0.83, Est GFR (MDRD) Af Amer 95, Est GFR (MDRD) Non-Af 79, BUN/Creatinine Ratio 12.0, Glucose 129 H, Calcium 9.2 09/11/24 06:52: WBC 9.3, RBC 4.78, Hgb 13.4, Hct 41.4, MCV 86.6, MCH 28.0, MCHC 32.4, Plt Count 323, MPV 9.7, Immature Gran % (Auto) 0.600, Neut % (Auto) 68.9, Lymph % (Auto) 22.4, Pickett % (Auto) 6.0, Eos % (Auto) 1.1, Baso % (Auto) 1.0, Absolute Neuts (auto) 6.4, Nucleated RBC % 0, Sodium 140, Potassium 4.1, C hloride 112 H, Carbon Dioxide 25.0, Anion Gap 3 L, BUN 8, Creatinine 0.64, Est GFR (MDRD) Af Amer 130, Est GFR (MDRD) Non-Af 108, BUN/Creatinine Ratio 12.6, G lucose 135 H, Calcium 9.4, Magnesium 2.1 Rhythm: EKG: ECHO: Stress Test: Cardiac Cath: PCI: CT Surgery: Holter monitor: EPS: PPM: CXR: Chest CT Scan: Radiography Diagnostic Testing: Radiology Impression Chest X-Ray 09/11/24 01:40 IMPRESSION: No significant interval change or acute process. Electronically Signed: Joe Murguia MD at 3:22 EST ,
[2024-09-11] MEDS: Metoprolol Tartrate 50 MG Tablet PO ×2 (09:05→21:55)
--- NOTE | 2024-09-11 09:50 | CASEMGMT ---
RN?CM?POLYMERIZATION SUPERVISOR?CM?to room to meet with patient for initial transition planning/care coordination?assessment.?RN?CM?introduced self and role at [facility].? Pt voices understanding and consents to?assessment?at this time.? Pt resting in bed in no distress at this time.? Pt is A/O at this time and answers all questions appropriately.?? Care providers, pharmacy, and demographics verified/updated at this time. PCP: Dr Medina Specialists: denies Preferred Pharmacy: [facility] @ [place]. Otherwise [facility]. Insurance: [employer] Prescription Benefit:?Yes. Pt to dc home on Eliquis. Pt provided w/ $10 co-pay card and instructed on use. FRANCESCA Ortiz RN CM, to f/u re: cost and 30-day free trial offer card. Living Will/HPOA:?Pt does not currently have LW/HCPOA and declines info at this time.? Pt made aware that she can contact as an out-pt and make appt in the future if she decides she would like to talk with someone about this or would like to utilize [facility] social work for advanced directive completion.? LNOK: , Wilfredo. 2 adult sons. 14-yr-old daughter. Living Arrangements: Lives w/ and 14-yr-old daughter in a 2-story home w/bedroom and bathroom on 2nd floor and 1/2 bath on main floor. One step to enter home. Independent. Transportation:?Pt states drives self and states no transportation concerns at this time.? also drives. DME: ? Denies using any DME and denies needs.? HHC/SNF: No hx. No needs identified. Pt wishes to return home and states has no concerns with going home at time of discharge.? Advised pt to ask for?CM?if any further questions/concerns/needs arise.? Voices understanding. PLAN:??Home Follow for anti-coag cost and savings card. [facility] FANN?RN?CM
[2024-09-11] MEDS: LORazepam 0.5 MG Tablet PO (18:01)
--- NOTE | 2024-09-12 02:43 | PCM.HOSP.N ---
Hospitalist Note Rate increasing up to 150, worse with activity, will administer IV cardizem bolus x 1.
[2024-09-12 04:00] VITALS: BP 128/74; PULSE 67; RESP 18; TEMP 36.1; O2SAT 98
--- NOTE | 2024-09-12 04:30 | EKG12_ITS ---
Test Reason : RHYTHM CHANGE Blood Pressure : */* mmHG Vent. Rate : 61 BPM Atrial Rate : 61 BPM P-R Int : 148 ms QRS Dur : 84 ms QT Int : 404 ms P-R-T Axes : 45 8 23 degrees QTcB Int : 406 ms Normal sinus rhythm Normal ECG When compared with ECG of 11-Sep-2024 01:41, Sinus rhythm has replaced Atrial fibrillation Vent. rate has decreased by [address] no longer depressed in Inferior leads ST no longer depressed in Anterolateral leads Nonspecific T wave abnormality no longer evident in Lateral leads Confirmed by VIV ARREDONDO, LITA ([id number]), editor book CALISTA PATHAK ([id number]) on 09/12/2024 2:16:18 PM Referred By: ALMA Confirmed By: LITA NAM MD
[2024-09-12 06:41] LABS: Absolute Lymphocyte Count 3.74 X10^3/uL (0.83-4.51); Absolute Neutrophil Count 6.2 X10^3/uL (2.0-7.7); Basophil# 0.08 X10^3/uL; Basophil% 0.7 % (0-1); Eosinophil# 0.26 X10^3/uL; Eosinophils% 2.3 % (0-5); Hematocrit 41.3 % (37-47); Hemoglobin 13.3 g/dL (12.0-15.0); Lymphocyte # 3.74 X10^3/ul (0.83-4.51); Lymphocyte % 33.5 % (19-41); Mean Corp Hgb Conc 32.2 g/dL (32-36); Mean Corpuscular Hgb 27.6 pg (27.0-32.0); Mean Corpuscular Volume 85.7 fL (81-99); Mean Platelet Vol. 9.8 fl (6.2-12.0); Monocyte# 0.82 X10^3/uL; Monocyte% 7.3 % (0-10); NRBC Flagged by Analyzer 0 % (0-5); Neutrophil # 6.23 X10^3/uL (2.7-7.7); Neutrophil % 55.8 % (47-70); Platelet Count 323 K/mm3 (150-450); RBC Distribution Width CV 16.1 % (11.6-14.6); RBC Distribution Width SD 50.3 fl (35.1-43.9); Red Blood Count 4.82 M/mm3 (4.2-5.4); White Blood Count 11.2 K/mm3 (4.4-11.0)
[2024-09-12 07:26] LABS: Anion Gap 3 (5-15); BUN 8 mg/dL (7-18); BUN/Creat Ratio 11.2 RATIO (10-20); Calcium,Total 9.2 mg/dL (8.5-10.1); Chloride 110 mmol/L (98-107); Creatinine, Serum 0.72 mg/dL (0.55-1.02); EST Glomerular Filtration Rate 94 mL/min (>60); Est Glom Filt Rate - Afr Amer 113 mL/min (>60); Estimated Creatinine Clearance 156.48 ml/min; Glucose 114 mg/dL (74-106); Potassium 3.7 mmol/L (3.5-5.1); Sodium Level 139 mmol/L (136-145)
--- NOTE | 2024-09-12 08:52 | DCINST_ITS ---
Discharge Instructions Diet Discharge Diet: Low fat / Low cholesterol DC O2, CPAP, BIPAP needs Additional Home O2 Discharge instructions: No Dressing / Incision Discharge Activity: Return to Normal Activity Dressing / Incision Call your doctor if you observe: Fever of 101 or Higher, Shortness of breath, Dizziness, Fainting spells, Swelling in the ankles, Chest pain and Increased palpitations (irregular heartbeat) Follow Up Care Test Results: Test results from this visit will be discussed in further detail at your follow- up appointment, if applicable. Discharge Plan Admission Admit Date/Time: 09/11/24 03:22 Attending Provider: Barry Damon Primary Care Provider: Rikki Medina Consulting Providers: Gilberto Kelly; Poncho Quinonez Instructions Additional Instructions / Restrictions: Follow-up with your PCP in 3 to 5 days. Minimize NSAID usage including ibuprofen and Motrin as this can cause stomach ulcers that would start to bleed in the setting of your new Eliquis prescription Discharge Orders/Prescriptions Prescriptions: New metoprolol tartrate 50 mg Tablet 50 mg PO BID 30 Days Qty: 60 0RF Eliquis 5 mg Tablet 5 mg PO BID 30 Days Qty: 60 0RF Continued losartan 50 mg tablet 50 mg PO QDAY cetirizine 10 mg tablet 10 mg PO QDAY spironolactone 50 mg tablet 50 mg PO QDAY cholecalciferol (vitamin D3) 25 mcg (1,000 unit) tablet 1,000 unit PO DAILY doxycycline hyclate 100 mg tablet 100 mg PO BID ibuprofen 800 mg tablet 800 mg PO Q8H PRN (Reason: pain) lorazepam [Ativan] 0.5 mg tablet 0.5 mg PO DAILY PRN PRN (Reason: anxiety) Referrals / Follow Up: Gilberto Kelly MD [Med Staff - Active Staff] - Within 1 Month Rikki Medina MD [Primary Care Provider] - Within 1 Week Disposition Disposition (needs filled in before D/C Order can be placed): Home, Self Care
[2024-09-12 09:19] VITALS: BP 126/92; PULSE 65; RESP 18; TEMP 36.6; O2SAT 98
--- NOTE | 2024-09-12 09:24 | PCM.PN.CARD ---
Subjective Subjective Patient seen and evaluated. Doing well. Back in sinus rhythm Objective Data Vital Signs: Vital Signs Temp Pulse Resp BP Pulse Ox O2 Del Method 97.8 F 65 18 126/92 H 98 Room Air 09/12/24 09:19 09/12/24 09:19 09/12/24 09:19 09/12/24 09:19 09/12/24 09:19 09/12/24 09:19 Oxygen Delivery Method Room Air Weight: 342 lb 6.046 oz Body Mass Index (BMI) 52.0 Intake & Output: Intake and Output for Last 24 Hours 09/10/24 09/11/24 09/12/24 23:59 23:59 23:59 Intake Total 1605.42 / 1955.42 650 / 650 Balance 1605.42 / 1955.42 650 / 650 Lab / Micro Data 09/12/24 06:14 09/12/24 06:14 Labs: Laboratory Results - last 24 hr 09/12/24 06:14: WBC 11.2 H, RBC 4.82, Hgb 13.3, Hct 41.3, MCV 85.7, MCH 27.6, MCHC 32.2, RDW Std Deviation 50.3 H, RDW Coeff of Brigid 16.1 H, Plt Count 323, MPV 9.8, Immature Gran % (Auto) 0.400, Neut % (Auto) 55.8, Lymph % (Auto) 33.5, [place] % (Auto) 7.3, Eos % (Auto) 2.3, Baso % (Auto) 0.7, Absolute Neuts (auto) 6.2, Absolute Lymphs (auto) 3.74, Nucleated RBC % 0, Sodium 139, Potassium 3.7, Chloride 110 H, Carbon Dioxide 25.0, Anion Gap 3 L, BUN 8, Creatinine 0.72, Estim Creat Clear Calc 156.48, Est GFR (MDRD) Af Amer 113, Est GFR (MDRD) Non-Af 94, BUN/Creatinine Ratio 11.2, Glucose 114 H, Calcium 9.2 Rhythm Strip Rhythm Strip: A-fib Rate: 137 Ectopy: None Cardiology Labs/Tests 09/12/24 06:14: WBC 11.2 H, RBC 4.82, Hgb 13.3, Hct 41.3, MCV 85.7, MCH 27.6, MCHC 32.2, Plt Count 323, MPV 9.8, Immature Gran % (Auto) 0.400, Neut % (Auto) 55.8, Lymph % (Auto) 33.5, [place] % (Auto) 7.3, Eos % (Auto) 2.3, Baso % (Auto) 0.7, Absolute Neuts (auto) 6.2, Nucleated RBC % 0, Sodium 139, Potassium 3.7, Chloride 110 H, Carbon Dioxide 25.0, Anion Gap 3 L, BUN 8, Creatinine 0.72, Est GFR (MDRD) Af Amer 113, Est GFR (MDRD) Non-Af 94, BUN/Creatinine Ratio 11.2, Glucose 114 H, Calcium 9.2 Rhythm: EKG: Normal sinus rhythm ECHO: Stress Test: Cardiac Cath: PCI: CT Surgery: Holter monitor: EPS: PPM: CXR: Chest CT Scan: Radiography Diagnostic Testing: Radiology Impression Echocardiogram 09/11/24 07:28 Interpretation Summary Normal LV size. Left ventricular systolic function is normal. The left ventricular ejection fraction is 60 %. Contrast injection was performed. Ordering Physician: Gilberto Kelly Referring Physician: Rikki Medina M.D. Performed By: Kami Oglesby RDCS and Student Physical Exam Const alert, oriented x3 and no apparent distress General Appearance: cooperative HEENT hearing grossly normal bilaterally Head and Scalp: atraumatic Eyes EOMs intact bilaterally Neck General: normal visual inspection Chest inspection of chest normal and palpation of chest normal Resp normal respiratory effort Auscultation: clear to auscultation bilaterally Cardio regular rate, regular rhythm, S1 normal heart sound and S2 normal heart sound Jugular Venous Distention: JVD GI normal to inspection, nondistended, normoactive bowel sounds Extremity normal capillary refill and no pedal edema Peripheral Pulses: Yes pulses 2+ throughout and femoral pulses present Skin no rashes or lesions noted Neuro oriented x3 and CN's II-XII intact bilaterally Psych Appearance: grossly normal and appropriate Assessment & Plan Assessment/Plan (1) Atrial fibrillation with rapid ventricular response: PLAN: She does present with atrial fibrillation with a rapid ventricular response rate and a chads Vascor of 2. Her echocardiogram demonstrated preserved left ventricular systolic function. She successfully converted back to sinus rhythm. The plan will be for her to continue anticoagulation for at least a month together with the beta-carlos alberto She will be seen in the office for follow-up. (2) History of hypertension: PLAN: She will continue on her current dose of losartan with the addition of metoprolol 50 mg twice a day.
[2024-09-12 09:25] VITALS: PULSE 65
[2024-09-12] MEDS: Doxycycline 100 MG CAPSULE PO (09:25)
[2024-09-12] MEDS: Cholecalciferol (VIT D3) 25 MCG TABLET (1,000 UNITS) PO (09:25)
[2024-09-12] MEDS: Metoprolol Tartrate 50 MG Tablet PO (09:25)
[2024-09-12] MEDS: Loratadine 10 MG Tablet PO (09:25)
[2024-09-12] MEDS: Losartan Potassium 50 MG Tablet PO (09:25)
[2024-09-12] MEDS: APIXABAN 5 MG TABLET PO (09:26)
[2024-09-12] MEDS: Spironolactone 50 MG Tablet PO (09:26)
--- NOTE | 2024-09-12 09:51 | CASEMGMT ---
Patient has order for discharge. Patient is discharging on JOSE Fields CM called [facility] and copay is $25. JOSE AMES updated patient and states she will activate $10 copay card to apply at discharge. Patient denies further needs or help at discharge. Patient had no further questions or concerns.
--- NOTE | 2024-09-12 12:44 | DS.PCM_ITS ---
Providers Date of Admission: 09/11/24 Primary Care Physician: Dr. Rikki Medina MD Consultations 09/11/24 04:20 Consult: Cardiology Routine Consulting Provider: Gilberto Kelly Reason for Consult: A-fib RVR EMERGENT Consult: Yes MD Notified: Yes Date Notified: 09/11/24 Time Notified: 03:25 Method of Notification: Text Reason For Visit: ATRIAL FIBRILLATION WITH RAPID VENTRICULAR Diagnosis Discharge Diagnosis (1) Atrial fibrillation with rapid ventricular response: Status: Acute Code(s): I48.91 - Unspecified atrial fibrillation (2) History of hypertension: Status: Acute Code(s): Z86.79 - Personal history of other diseases of the circulatory system Medications at Discharge Home Medications cholecalciferol (vitamin D3) 25 mcg (1,000 unit) tablet 1,000 unit PO DAILY 02/16/21 cetirizine 10 mg tablet 10 mg PO QDAY 07/27/24 losartan 50 mg tablet 50 mg PO QDAY 07/27/24 spironolactone 50 mg tablet 50 mg PO QDAY 07/27/24 doxycycline hyclate 100 mg tablet 100 mg PO BID 09/11/24 ibuprofen 800 mg tablet 800 mg PO Q8H PRN pain 09/11/24 lorazepam 0.5 mg tablet (Ativan) 0.5 mg PO DAILY PRN PRN anxiety 09/11/24 apixaban 5 mg tablet (Eliquis) 5 mg PO BID 30 days #60 tabs 09/12/24 metoprolol tartrate 50 mg tablet 50 mg PO BID 30 days #60 tabs 09/12/24 Hospital Course Operations None Procedures 2-D Echocardiogram Summary of Care Provided Minutes Spent on Discharge: 34 Hospital Course: Per HPI: ELY BAH, is a 44 F who presents to the emergency room with chief complaint of palpitations. Onset of symptoms began earlier today patient states she has had similar presentations around the time of her period which she just started earlier today as well. On EKG patient was diagnosed with atrial fibrillation with rapid ventricular response currently on a rate of 150 bpm. Patient states she feels anxious and slightly winded but denies chest pain and/or fevers or chills at this time. States her mom has a history of atrial fibrillation as well. Patient has not previously been diagnosed or treated for obstructive sleep apnea. Initial laboratory studies are unremarkable. Patient was started on Cardizem drip and admission was requested. Hospital Course: 1. New onset A-fib with RVR/essential HTN?44-year-old female presented to the hospital with palpitations consistent with A-fib with RVR. She was started on Cardizem drip and then transition to p.o. metoprolol. She did receive a 2 doses of p.o. metoprolol at 50 mg and overnight was able to spontaneously convert to normal sinus rhythm. Because of the A-fib diagnosis she was started on Eliquis and cardiology was consulted. Echo had an EF of 60% and left atrium was normal size. She thinks that this may be related to hormonal variations because she has noticed that she was feeling palpitations whenever she was having her period. I discussed with her the plans for discharge she expressed understanding the risks and benefits of going home and would like to go home today. I recommended she follow-up with her PCP in 3 to 5 days and follow-up with cardiology within a month or 2 for any medication adjustments. She will be discharged on Eliquis 5 mg p.o. twice daily as well as metoprolol 50 mg p.o. twice daily. Physical Exam Narrative General: Alert, Oriented x3, Cooperative, No apparent distress HEENT: Atraumatic, PERRLA, EOMI, Normocephalic Oral: Moist Mucosa Neck: Supple, No JVD Lungs: Clear to auscultation, Normal air movement, No rhonchi, No wheeze, No rales Cardiovascular: Regular rate, Regular Rhythm, Normal S1, Normal S2, No murmurs Abdomen: Soft, Non Tender, Non-Distended, No Hepato-splenomegaly Extremities: No edema, Capillary Refill Less than 3 Seconds Skin: No rashes, No breakdown Musculoskeletal: No Tenderness to Palpation of Joints or Extremities Neurological: No focal neurological deficits, Motor Exam 5/5 strength throughout, Sensory exam intact to light touch and pain Psych/Mental Status: Normal Affect, Appropriate Weight / BMI Weight Weight: 342 lb 6.046 oz Body Mass Index (BMI) 52.0 ABG / Lab / Microbiology Data 09/12/24 06:14 09/12/24 06:14 Laboratory: Laboratory Results - last 24 hr 09/12/24 06:14: WBC 11.2 H, RBC 4.82, Hgb 13.3, Hct 41.3, MCV 85.7, MCH 27.6, MCHC 32.2, RDW Std Deviation 50.3 H, RDW Coeff of Brigid 16.1 H, Plt Count 323, MPV 9.8, Immature Gran % (Auto) 0.400, Neut % (Auto) 55.8, Lymph % (Auto) 33.5, [place] % (Auto) 7.3, Eos % (Auto) 2.3, Baso % (Auto) 0.7, Absolute Neuts (auto) 6.2, Absolute Lymphs (auto) 3.74, Nucleated RBC % 0, Sodium 139, Potassium 3.7, C hloride 110 H, Carbon Dioxide 25.0, Anion Gap 3 L, BUN 8, Creatinine 0.72, Estim Creat Clear Calc 156.48, Est GFR (MDRD) Af Amer 113, Est GFR (MDRD) Non-Af 94, BUN/Creatinine Ratio 11.2, Glucose 114 H, Calcium 9.2 D/C Instructions Discharge Diet: Low fat / Low cholesterol Call your doctor if you observe: Fever of 101 or Higher, Shortness of breath, Dizziness, Fainting spells, Swelling in the ankles, Chest pain and Increased palpitations (irregular heartbeat) DC O2, CPAP, BIPAP Needs Additional Home O2 Discharge instructions: No DC home with Oxygen: No Meaningful Use Info Meaningful Use Meaningful Use Diagnoses (Choose all that apply): None applicable Ischemic Stroke Statin Dosing Therapy Reference: STATIN DOSE THERAPY REFERENCE: * Patients > 75 years receive moderate or high dose statin therapy. * Patients 75 years or YOUNGER should receive HIGH intensity statin dose unless contraindicated. You will be required to document reason for non-treatment if statin daily dose does not meet guidelines. HIGH DOSE STATIN THERAPY DAILY Atorvastatin > than or = to 40 mg Rosuvastatin > than or = to 20 mg Amlodipine + Atorvastatin > than or = to 2.5/40 mg Ezetimibe + Simvastatin 10/80 mg Simvastatin 80mg Discharge Plan Admission Admit Date/Time: 09/11/24 03:22 Attending Provider: Barry Damon Primary Care Provider: Rikki Medina Consulting Providers: Gilberto Kelly; Poncho Quinonez Instructions Additional Instructions / Restrictions: Follow-up with your PCP in 3 to 5 days. Minimize NSAID usage including ibuprofen and Motrin as this can cause stomach ulcers that would start to bleed in the setting of your new Eliquis prescription Discharge Orders/Prescriptions Prescriptions: New metoprolol tartrate 50 mg Tablet 50 mg PO BID 30 Days Qty: 60 0RF Eliquis 5 mg Tablet 5 mg PO BID 30 Days Qty: 60 0RF Continued losartan 50 mg tablet 50 mg PO QDAY cetirizine 10 mg tablet 10 mg PO QDAY spironolactone 50 mg tablet 50 mg PO QDAY cholecalciferol (vitamin D3) 25 mcg (1,000 unit) tablet 1,000 unit PO DAILY doxycycline hyclate 100 mg tablet 100 mg PO BID ibuprofen 800 mg tablet 800 mg PO Q8H PRN (Reason: pain) lorazepam [Ativan] 0.5 mg tablet 0.5 mg PO DAILY PRN PRN (Reason: anxiety) Referrals / Follow Up: Gilberto Kelly MD [Med Staff - Active Staff] - Within 1 Month Rikki Medina MD [Primary Care Provider] - Within 1 Week Disposition Disposition (needs filled in before D/C Order can be placed): Home, Self Care Charges/Coding Visit Charges Inpatient E&M: 37946 Disch Hosp >30min
== END 2024-09-12 10:45 | disposition home or self-care (01) | DRG 309 ==
LOC: ED 02:33 → PCU 04:04
PROVIDERS: Admitting Provider Family Medicine; Emergency Provider Emergency Medicine; PCP Internal Medicine; Visit Provider Family Medicine
DX: I48.91 Unspecified atrial fibrillation (principal); Z68.43 Body mass index [BMI] 50.0-59.9, adult; E66.01 Morbid (severe) obesity due to excess calories; I10 Essential (primary) hypertension; E87.6 Hypokalemia; F41.9 Anxiety disorder, unspecified; F17.210 Nicotine dependence, cigarettes, uncomplicated; Z86.718 Personal history of other venous thrombosis and embolism; Z79.899 Other long term (current) drug therapy
CPT/HCPCS: 36415; 71045; 80048; 83735; 84443; 84484; 85025; 85610; 85730; 93005; 93306; 96365; 96366; 96375; 99221; 99285; 99406; Q9957; A4216; C8929; G0378